=== PATIENT | male | born 1970 | race Caucasian/White ===

== ENCOUNTER 2019-06-02 08:00 | Emergency (ER) | payer OTHER, SELFPAY ==
[2019-06-02 08:03] VITALS: BP 158/101; PULSE 77; RESP 16; TEMP 36.6; O2SAT 99; BMI 30.5
--- NOTE | 2019-06-02 08:08 | W.ED.ABDPA2 ---
HPI - Abdominal Pain General: Chief Complaint: Abdominal Pain Stated Complaint: Abd pain Time Seen by Provider: 06/02/19 08:08 [facility] ED PFSH: Statuses (acute, chronic, etc) shown below reflect problem list status as previously entered and may not be historically accurate Social History Smoking and tobacco status: current every day smoker Course Vital Signs: Vital signs: Vital Signs Temperature 97.8 F 06/02/19 08:03 Pulse Rate 77 06/02/19 08:03 Respiratory Rate 16 06/02/19 08:03 Blood Pressure 158/101 06/02/19 08:03 Pulse Oximetry 99 06/02/19 08:03 Coding Level of Care Code ED Enforcement Safety Officer for Karthikeyan Cesar
--- NOTE | 2019-06-02 08:11 | XR_ITS ---
WS: [id number] ABDOMEN 1 VIEW(S) HISTORY: pain COMPARISON: None available. Slight increased amount of air in small bowel loops in the LEFT abdomen and RIGHT lower quadrant. The re is mild wall thickening and increase fluid suspected in the RIGHT colon or distal small bowel. Dec reased amount of air in the distal GI tract. No suspicious calcifications or masses. No bone abnormality. XR/XR KUB portable [id number] IMPRESSION: 1. Suspected colitis or early partial small bowel obstruction. Recommend follo w-up CT abdomen and pelvis. 2. No obstruction.
--- NOTE | 2019-06-02 08:12 | ED_ITS ---
HPI - General Adult General: Chief complaint: Abdominal Pain Stated complaint: Abd pain Time Seen by Provider: 06/02/19 08:08 History of Present Illness: HPI narrative: Patient complains abdominal pain x3 days. Denies any bowel or urine problems. Denies nausea or vomiting and denies any other health problems. Able to eat and drink complaint: Abdominal pain Onset (ago): day(s) (3) Location: abdomen Radiation: non-radiation Severity: moderate Severity scale (1-10): 5 Quality: aching Pain Consistency: constant Relieving factors: none Associated symptoms: Deny chest pain, dyspnea, headache(s), nausea, rash or vomiting Review of Systems Const: Denies: fever, chills or body aches Eyes: Denies: change in vision or blurry vision ENMT: Denies: throat pain or nasal congestion Card: Denies: chest pain or shortness of breath on exertion Resp: Denies: shortness of breath, productive cough or non-productive cough GI: Reports: abdominal pain and heartburn/indigestion; Denies: nausea, vomiting, feeling full early, change in bowel habits, painful bowel movements or change in stool character : Denies: difficulty urinating Musc: Denies: extremity pain Skin/Breast: Denies: rash Neuro: Denies: headache Psych: Denies: anxiety or depression [place]/Lymph: Denies: easy bruising PFSH ED PFSH: Statuses (acute, chronic, etc) shown below reflect problem list status as previously entered and may not be historically accurate Social History Smoking and tobacco status: current every day smoker Physical Exam Const: COMMON NORMALS: no apparent distress, average body habitus and oriented x3 HENMT: COMMON NORMALS: normocephalic HEAD & SCALP: normal to inspection and normocephalic FACE & SINUS: normal facial exam Eye: COMMON NORMALS: conjunctivae normal GENERAL EYE: normal appearance of both eyes CONJUNCTIVA: Yes conjunctivae normal Neck/C-Spine: COMMON NORMALS: no JVD Chest: COMMONS NORMALS: inspection of chest normal Resp: COMMON NORMALS: normal respiratory effort and clear to auscultation bilaterally AUSCULTATION: clear to auscultation bilaterally Cardio: COMMON NORMALS: no JVD, regular rate and regular rhythm RATE: regular rate RHYTHM: regular rhythm GI: COMMON NORMALS: normal to inspection, nondistended, normoactive bowel sounds INSPECTION: Yes normal to inspection AUSCULTATION: Yes normoactive bowel sounds PALPATION: Yes tender (Epigastric) Details: LLQ, RLQ, LUQ and RUQ Extremity: COMMON NORMALS: normal to inspection and full ROM Neuro: COMMON NORMALS: oriented x3 Course Vital Signs: Vital signs: Vital Signs Temperature 97.8 F 06/02/19 08:03 Pulse Rate 77 06/02/19 08:03 Respiratory Rate 16 06/02/19 08:03 Blood Pressure 158/101 06/02/19 08:03 Pulse Oximetry 98 06/02/19 08:19 MDM - General Adult MDM Narrative: Medical decision making narrative: Discussed his left adrenal gland adenoma that he has a there is no change since 2011 patient was relieved to hear that. Lab Data: Labs: Lab Results 06/02/19 06/02/19 Range/Units 08:15 08:15 WBC 8.1 (4.0-10.0) 10^3/ uL RBC 5.19 (4.1-5.3) 10^6/u L Hgb 15.6 (11.7-16.6) g/dL Hct 46.9 (42.0-52.0) % MCV 90.4 (80-94) fL MCH 30.1 (28.0-34.0) pg MCHC 33.3 (30.0-36.0) g/dL RDW 13.0 (12.1-15.1) % Plt Count 332 (130-400) 10^3/c mm MPV 9.7 (7.4-10.4) fL Neut % (Auto) 60.4 % Lymph % (Auto) 27.0 % [place] % (Auto) 8.2 % Eos % (Auto) 3.3 % Baso % (Auto) 0.7 % Neut # (Auto) 4.9 (1.8-7.7) 10^3/u L Lymph # (Auto) 2.2 (0.8-4.8) 10^3/u L [place] # (Auto) 0.7 (0.2-0.9) 10^3/u L Eos # (Auto) 0.3 (0.0-0.8) 10^3/u L Baso # (Auto) 0.1 (0.0-0.1) 10^3/u L Nucleated RBC % (a uto) 0 % Nucleated RBCs # 0.0 /100WBC Sodium 140 (136-145) mmol/L Potassium 4.2 (3.5-5.1) mmol/L Chloride 101 (98-107) mmol/L Carbon Dioxide 27 (22-29) mmol/L Anion Gap 16.2 (5-19) BUN 12 (6-20) mg/dL Creatinine 0.9 (0.7-1.2) mg/dL GFR Calculation 89.0 L (90-130) mL/min Glucose 113 (65-115) mg/dL Calcium 9.1 (8.5-10.5) mg/dL Total Bilirubin 0.3 (0.15-1.2) mg/dL AST 14 (0-40) U/L ALT 10 (0-41) U/L Alkaline Phosphata se 82 (40-130) IU/L Total Protein 6.9 (6.6-8.7) g/dL Albumin 4.1 (3.5-5.2) g/dL Globulin 2.8 (1.3-4.6) g/dL Lipase 24 (13-60) U/L Discharge Plan Discharge Patient Disposition: Home, Self-Care Clinical Impression: Gastroenteritis Condition: Stable Prescriptions: New Reglan 5 mg tablet 5 mg PO Q6H PRN (Reason: nausea and vomiting) Qty: 14 RF: 0 Discharge Orders: Discharge Order (Routine); Ordered 06/02/19 Ordered By: Peter Kumar Referrals: Justin Pierre, [Family Provider] - Discharge Diet: Advance as tolerated Discharge Activity: Increase activity as tolerated Patient Instructions: Gastroenteritis (ED) Activity Restrictions/Additional Instructions: Follow-up with medical provider as directed. Take medications as prescribed. Return to the ER or your medical provider if condition worsens. Please read and understand discharge instructions. If any questions ask please. Advance diet slowly fluids for next 2 days and advance to solid foods after that. Coding Level of Care Code ED Reference And Instruction Librarian for Karthikeyan Fwchance Exam Problem Focused
[2019-06-02 08:19] VITALS: O2SAT 98
[2019-06-02] MEDS: sodium chloride 0.9% 1,000 ML 999 ML IV (08:27)
[2019-06-02 08:32] LABS: Basophils # 0.1 10^3/uL (0.0-0.1); Basophils % 0.7 %; Eosinophils # 0.3 10^3/uL (0.0-0.8); Eosinophils % 3.3 %; Hematocrit 46.9 % (42.0-52.0); Hemoglobin 15.6 g/dL (11.7-16.6); Lymphocytes # 2.2 10^3/uL (0.8-4.8); Mean Corpuscular HGB Conc 33.3 g/dL (30.0-36.0); Mean Corpuscular Hemoglobin 30.1 pg (28.0-34.0); Mean Corpuscular Volume 90.4 fL (80-94); Mean Platelet Volume 9.7 fL (7.4-10.4); Monocytes # 0.7 10^3/uL (0.2-0.9); Monocytes % 8.2 %; Neutrophils # 4.9 10^3/uL (1.8-7.7); Neutrophils % 60.4 %; Nucleated Red Blood Cells % 0 %; Platelet Count 332 10^3/cmm (130-400); Red Blood Count 5.19 10^6/uL (4.1-5.3); White Blood Count 8.1 10^3/uL (4.0-10.0)
--- NOTE | 2019-06-02 08:41 | CT_ITS ---
WS: [id number] CT ABDOMEN AND PELVIS WITH CONTRAST HISTORY: ABDOMINAL PAIN TECHNIQUE: Imaging performed of the abdomen and pelvis with IV contrast. Single phase imaging of the abdomen. Coronal and sagittal reformats are submitted. All CT scans at [facility] use at least one of these dose optimization techniques: automated exposure control; mA and/or kV adjustment per patient size (includes targeted exams where dose is matched to clinical indication); or iterativ e reconstruction. IV CONTRAST: Omnipaque 300; 95 mL IV. Oral contrast: No DLP: 1242.33 mGy.cm COMPARISON: 12/29/2015 Lower thorax: Mild dependent changes at the lung bases. Heart size is normal. Small hiatal hernia. Liver/biliary system: Normal size liver with a few scattered areas of decreased density the largest m easures 6 mm in the LEFT lobe. No change since 12/29/2015. Gallbladder: Very slightly contracted gallbladder. No adjacent inflammation. Pancreas: Normal. Spleen: Normal. Adrenal glands: Normal RIGHT adrenal gland. Marked lobulation of the LEFT adrenal gland with the late ral limb measuring 3.0 x 1.5 cm. Similar to studies dating back to 08/30/2011. Consistent with a benign adenoma. Right kidney: Normal. Left kidney: Normal. Aorta: Mild atherosclerosis with no aneurysm. Lymphadenopathy: None. Free fluid: None. GI tract: Mild hyperemia and mild wall thickening of the small bowel loops predominantly within the L EFT abdomen. There is mild fluid distention with no obstruction. The appendix is normal. Moderate con stipation throughout the remaining colon. There are a few scattered diverticula in the sigmoid with n o acute inflammation. Abdominal wall: Unremarkable abdominal wall. No hernia. Pelvis: Well-distended urinary bladder. No free fluid or adenopathy. Bones: No osteoblastic or osteolytic bone disease. CT/CT abdomen pelvis w con* [id number] IMPRESSION: 1. Mild hyperemia, increased fluid and wall thickening of the small bowel loop s, predominantly within the LEFT abdomen. Findings are most consistent with a m ild gastroenteritis/enteritis. 2. No obstruction. 3. Constipation. 4. Long-term stability LEFT adrenal mass, consistent with that adenoma.
[2019-06-02 08:47] LABS: Alanine Aminotransferase 10 U/L (0-41); Albumin Level 4.1 g/dL (3.5-5.2); Alkaline Phosphatase 82 IU/L (40-130); Anion Gap 16.2 (5-19); Aspartate Amino Transferase 14 U/L (0-40); Blood Urea Nitrogen 12 mg/dL (6-20); Calcium 9.1 mg/dL (8.5-10.5); Carbon Dioxide 27 mmol/L (22-29); Chloride 101 mmol/L (98-107); Globulin 2.8 g/dL (1.3-4.6); Glucose 113 mg/dL (65-115); Lipase 24 U/L (13-60); Potassium 4.2 mmol/L (3.5-5.1); Sodium 140 mmol/L (136-145); Total Bilirubin 0.3 mg/dL (0.15-1.2); Total Protein 6.9 g/dL (6.6-8.7)
[2019-06-02] MEDS: iohexol 300 mg/mL 100 mL Btl IV (09:01)
[2019-06-02] MEDS: lidocaine 2% viscous 15 mL UDC 10 ML PO (09:14)
[2019-06-02] MEDS: alum-mag-hydroxide-sime 30 mL UDC 10 ML PO (09:14)
[2019-06-02] MEDS: sucralfate 1 gm/10 mL Oral Liq UDC PO (09:14)
[2019-06-02] MEDS: ketorolac 30 mg/mL INJ IVP (09:37)
[2019-06-02 10:00] VITALS: BP 156/93; PULSE 90; RESP 18; O2SAT 97
[2019-06-02 10:04] LABS: Add Urine Microscopic? NO
[2019-06-02 10:06] LABS: Bilirubin Urine Neg (NEGATIVE); Blood Urine Neg (Negative); Glucose Urine UA Norm (Normal); Ketones Urine Negative (Negative); Leukocyte Esterase Urine Negative (Negative); Nitrate Urine Negative (Negative); Protein Urine Neg (Negative); Urine Appearance Clear (CLEAR); Urine Color Yellow (Yellow); Urobilinogen Urine Norm (Negative)
== END 2019-06-02 10:01 | disposition home or self-care (01) ==
PROVIDERS: Emergency Provider Nurse Practitioner Family; Family Provider Electrodiagnostic Medicine
DX: K52.9 Noninfective gastroenteritis and colitis, unspecified (principal); F17.210 Nicotine dependence, cigarettes, uncomplicated
CPT/HCPCS: 36415; 74018; 74177; 80053; 81003; 83690; 85025; 96360; 96361; 96374; 96375; 99283; A9270; J1885; J7030; Q9967

== ENCOUNTER 2019-06-21 10:58 | Emergency (ER) | payer OTHER, SELFPAY ==
[2019-06-21 11:08] VITALS: BP 150/108; PULSE 70; RESP 16; TEMP 36.6; O2SAT 98; BMI 30.5
--- NOTE | 2019-06-21 12:20 | ED_ITS ---
HPI - Back Pain/Injury General: Chief Complaint: General Medical Stated Complaint: back pain Time Seen by Provider: 06/21/19 12:19 Source: patient Mode of arrival: ambulatory Limitations: no limitations History of Present Illness: HPI Narrative: Patient is a very nice 49-year-old male who presents to ED today with complaints of lower back pain. Patient states almost a week ago he was lifting something heavy when he immediately felt something pull in his back. Patient states he has had these pains previously when he has had herniated disks. Patient states he continued to work all week because he needed the money but knows it added to the aggravation of his back. Patient reports pain will radiate down into his legs. He is not having any issues with bowel or bladder dysfunction. He denies saddle anesthesia. Patient was able to ambulate throughout the ED. MD elicited complaint: back pain Pertinent past history: prior back pain Onset (ago): day(s) Timing: constant Severity: moderate Similar Symptoms Previously: Yes Exacerbating factors: movement, sitting upright, coughing/sneezing and lifting Context: while lifting Associated symptoms: Deny chills, dysuria, fever(s) or urinary urgency Review of Systems Const: Denies: fever or chills : Denies: flank pain, difficulty urinating, painful urination, urinary frequency, urinary urgency or urinary hesitancy Musc: Reports: back pain; Denies: neck pain, extremity pain, extremity swelling, joint pain or joint swelling Skin/Breast: Denies: rash Neuro: Denies: numbness in extremities, weakness in extremities, changes in sensation or lack of coordination PFSH ED PFSH: Social History Smoking and tobacco status: current every day smoker Physical Exam Const: COMMON NORMALS: no apparent distress, average body habitus, oriented x3, no limitations, healthy appearing, alert and well nourished Resp: COMMON NORMALS: normal respiratory effort and clear to auscultation bilaterally AUSCULTATION: clear to auscultation bilaterally Cardio: COMMON NORMALS: regular rate and regular rhythm RATE: regular rate RHYTHM: regular rhythm : COMMON NORMALS: Yes no CVA tenderness BLADDER/KIDNEY EXAM: Yes no CVA tenderness Back/Pelvis: COMMON NORMALS: no CVA tenderness THORACIC SPINE/UPPER BACK: Yes normal to inspection, Yes thoracic ROM normal and No thoracic spinal tenderness LUMBAR SPINE/LOWER BACK: Yes lumbar spinal tenderness Lumbar spinal tenderness location: L4 and L5 SACROILIAC JOINTS: Yes SI joints normal Neuro: COMMON NORMALS: oriented x3, no focal motor deficits and no sensory deficits noted SENSORIUM/ORIENTATION: Yes alert MOTOR EXAM: strength 5/5 throughout Skin: COMMON NORMALS: no rashes or lesions noted GENERAL SKIN EXAM: no rashes or lesions noted Course Vital Signs: Vital signs: Vital Signs Temperature 97.8 F 06/21/19 11:08 Pulse Rate 70 06/21/19 11:08 Respiratory Rate 16 06/21/19 11:08 Blood Pressure 150/108 06/21/19 11:08 Pulse Oximetry 98 06/21/19 11:08 Discharge Plan Discharge Patient Disposition: Home, Self-Care Clinical Impression: Low back strain Qualifiers: Encounter type: initial encounter Qualified Code(s): S39.012A - Strain of muscle, fascia and tendon of lower back, initial encounter Condition: Stable Prescriptions: New cyclobenzaprine 10 mg tablet 10 mg PO TID Qty: 14 RF: 0 prednisone 10 mg tablet 60 mg PO DAILY 5 Days Qty: 30 RF: 0 hydrocodone-acetaminophen 5-325 mg tablet 1 tab PO Q6H PRN (Reason: pain) Qty: 14 RF: 0 diclofenac sodium 50 mg tablet,delayed release (DR/EC) 50 mg PO Q12H PRN (Reason: pain) Qty: 20 RF: 0 Discharge Orders: Discharge Order (Routine); Ordered 06/21/19 Ordered By: Mi Sánchez Referrals: Justin Pierre DO [Family Provider] - Discharge Diet: Usual diet Discharge Activity: Increase activity as tolerated Patient Instructions: Lumbar Disc Herniation (ED), Low Back Strain (ED) Stand Alone Forms: Work/School Release Discharge Date/Time: 06/21/19 13:11 Coding Level of Care Code ED Missile [employer] Miss[employer] Checkout Technician for Chg Fwd Exam Detailed
[2019-06-21] MEDS: dexamethasone 10 mg/mL INJ 8 MG IM (12:48)
[2019-06-21] MEDS: ketorolac 60 mg/2 mL INJ IM (12:48)
== END 2019-06-21 13:11 | disposition home or self-care (01) ==
PROVIDERS: Emergency Provider Physician Assistant; Family Provider Electrodiagnostic Medicine
DX: S39.012A Strain of muscle, fascia and tendon of lower back, initial encounter (principal); F17.200 Nicotine dependence, unspecified, uncomplicated; X50.0XXA Overexertion from strenuous movement or load, initial encounter
CPT/HCPCS: 96372; 99281; 99283; J1100; J1885

== ENCOUNTER 2019-08-01 19:28 | Emergency (ER) | payer OTHER, SELFPAY ==
[2019-08-01 19:35] VITALS: BP 166/102; PULSE 95; RESP 20; TEMP 37.9; O2SAT 98; BMI 30.5
--- NOTE | 2019-08-01 20:18 | W.ED.SOB ---
HPI - SOB/Dyspnea General: Chief Complaint: Shortness of Breath/Dyspnea Stated Complaint: fever/sob Time Seen by Provider: 08/01/19 19:45 Source: patient Mode of arrival: ambulatory Limitations: no limitations History of Present Illness: HPI Narrative: 49-year-old gentleman who presents to the emergency department with complaints of cough, difficulty breathing, fever that all started this morning. The patient was in [place] when the symptoms started and he has been there for the last 10 days. When he got home his temperature was 102.3. Cough is dry. Has chest pain only when coughing. He smokes about 2 packs of cigarettes a day. MD elicited complaint: shortness of breath and cough Onset (ago): hour(s) (8) Timing: constant and progressively worsening Severity: moderate Exacerbating factors: nothing Relieving factors: nothing Associated symptoms: Reports chest congestion, chest pain, cough, fever(s) and myalgias; Deny abdominal pain, nausea, palpitations, polydipsia, polyuria or vomiting Treatment prior to arrival: none Review of Systems General: Reports: 10 or more systems reviewed and unremarkable except in HPI and below Const: Reports: fever Eyes: Denies: change in vision or blurry vision ENMT: Denies: throat pain, enlarged tonsils, painful swallowing, hoarseness, mouth pain or swelling of lips/tongue Card: Reports: chest pain; Denies: palpitations, irregular heart rhythm, edema or swelling of feet/ankles Resp: Reports: chest congestion GI: Denies: abdominal pain, nausea or vomiting : Denies: flank pain, painful urination, urinary frequency, urinary urgency or urinary hesitancy Musc: Denies: neck pain, back pain or extremity swelling Skin/Breast: Denies: rash, itching or redness Neuro: Denies: headache, numbness in extremities or weakness in extremities Endo: Denies: excessive urination, excessive thirst or tired all the time PFSH ED PFSH: Medical History Back pain Degenerative joint disease Smoking greater than 20 pack years Surgical History (Updated 08/01/19 @ 23:14 by Brian Abel MD) Hx of tonsillectomy Social History Smoking and tobacco status: current every day smoker Physical Exam Const: COMMON NORMALS: no apparent distress, average body habitus, oriented x3, no limitations, alert and well nourished GENERAL APPEARANCE: ill appearing HENMT: COMMON NORMALS: normocephalic, head/scalp atraumatic and moist oral mucous membranes HEAD & SCALP: normocephalic and atraumatic Eye: COMMON NORMALS: PERRL, EOMs intact bilaterally, conjunctivae normal and no scleral icterus CONJUNCTIVA: Yes conjunctivae normal PUPIL: Yes PERRL Neck/C-Spine: COMMON NORMALS: full ROM, supple, no meningeal signs, no JVD and no carotid bruits Chest: COMMONS NORMALS: inspection of chest normal and palpation of chest normal Resp: COMMON NORMALS: normal respiratory effort, no retractions, no use of accessory muscles, clear to auscultation bilaterally and percussion normal AUSCULTATION: clear to auscultation bilaterally PERCUSSION: percussion normal Cardio: COMMON NORMALS: no JVD, regular rate, regular rhythm, S1 normal heart sound, S2 normal heart sound, no gallops, no clicks, no murmurs, no rub and peripheral pulses 2+ throughout RATE: regular rate RHYTHM: regular rhythm HEART SOUNDS: S1 normal and S2 normal PERIPHERAL PULSES: pulses 2+ throughout GI: COMMON NORMALS: normal to inspection, nondistended, normoactive bowel sounds, soft to palpation, non-tender, no hepatosplenomegaly, no masses and no bruits PALPATION: Yes soft and Yes no hepatosplenomegaly : COMMON NORMALS: Yes no CVA tenderness BLADDER/KIDNEY EXAM: Yes no CVA tenderness Back/Pelvis: COMMON NORMALS: no CVA tenderness Extremity: COMMON NORMALS: normal to inspection, full ROM, normal capillary refill, no calf tenderness and no pedal edema Neuro: COMMON NORMALS: oriented x3 SENSORIUM/ORIENTATION: Yes alert MENINGEAL SIGNS: Yes no meningeal signs Skin: COMMON NORMALS: no rashes or lesions noted, no wounds, skin turgor normal, no jaundice, no petechiae and no mottling GENERAL SKIN EXAM: no rashes or lesions noted and turgor normal Course Reevaluation(s): Reevaluation #1: Discussed his lab and imaging findings with him. Discussed that nothing acute showed up on his labs or his chest x-ray. I advised that because of his history of being in [place] for the last 10 days and his fever as well as his respiratory symptoms I have a high index of suspicion for covid-19 in him. He has been tested and we are awaiting his results. However because of how sick he appears I would like to admit him for further evaluation and management. I explained the reasons why, however the patient does not want to be admitted. He insists he is discharged home. He understands the risks involved including worsening of his symptoms and possibly . I advised him to self quarantine for at least 14 days and he voiced understanding. I also strongly advised that if he worsens then he needs to present for reevaluation and possible admission. He also voiced understanding. I will therefore discharge him home. Time: 22:58 Consultations: Consultation #1: Dr. Abel, hospitalist. He kindly accepted patient to his service. The patient will be admitted to the [facility] which is where all the patient under investigation are being kept at this time. Time: 22:55 Vital Signs: Vital signs: Vital Signs Temperature 102.8 F H 08/01/19 20:57 Pulse Rate 95 08/01/19 19:35 Respiratory Rate 20 H 08/01/19 19:35 Blood Pressure 166/102 08/01/19 19:35 Pulse Oximetry 97 08/01/19 20:57 MDM - SOB/Dyspnea Lab Data: Labs: Lab Results 08/01/19 08/01/19 08/01/19 Range/Units 21:30 21:30 21:30 WBC 5.3 (4.0-10.0) 10^3/ uL RBC 5.07 (4.1-5.3) 10^6/u L Hgb 15.5 (11.7-16.6) g/dL Hct 46.6 (42.0-52.0) % MCV 91.9 (80-94) fL MCH 30.6 (28.0-34.0) pg MCHC 33.3 (30.0-36.0) g/dL RDW 13.3 (12.1-15.1) % Plt Count 239 (130-400) 10^3/c mm MPV 9.7 (7.4-10.4) fL Neut % (Auto) 76.4 % Lymph % (Auto) 14.8 % [place] % (Auto) 7.7 % Eos % (Auto) 0.2 % Baso % (Auto) 0.7 % Neut # (Auto) 4.1 (1.8-7.7) 10^3/u L Lymph # (Auto) 0.8 (0.8-4.8) 10^3/u L [place] # (Auto) 0.4 (0.2-0.9) 10^3/u L Eos # (Auto) 0.0 (0.0-0.8) 10^3/u L Baso # (Auto) 0.0 (0.0-0.1) 10^3/u L Nucleated RBC % (a uto) 0 % Nucleated RBCs # 0.0 /100WBC D-Dimer (0-0.59) ug/mIFE U Sodium 138 (136-145) mmol/L Potassium 3.6 (3.5-5.1) mmol/L Chloride 99 (98-107) mmol/L Carbon Dioxide 27 (22-29) mmol/L Anion Gap 15.6 (5-19) BUN 11 (6-20) mg/dL Creatinine 1.1 (0.7-1.2) mg/dL GFR Calculation 70.6 L (90-130) mL/min Glucose 101 (65-115) mg/dL Calculated Osmolal ity 282 L (285-295) mOsm/k g Lactate 1.2 (0.5-2.2) mmol/L Calcium 8.9 (8.5-10.5) mg/dL Ferritin (30-400) ng/mL Total Bilirubin 0.2 (0.15-1.2) mg/dL AST 23 (0-40) U/L ALT 22 (0-41) U/L Alkaline Phosphata se 94 (40-130) IU/L Lactate Dehydrogen ase (135-225) U/L C-Reactive Protein (0.0-4.9) mg/L Total Protein 7.7 (6.6-8.7) g/dL Albumin 4.5 (3.5-5.2) g/dL Globulin 3.2 (1.3-4.6) g/dL 08/01/19 08/01/19 08/01/19 Range/Units 21:30 21:30 21:30 WBC (4.0-10.0) 10^3/ uL RBC (4.1-5.3) 10^6/u L Hgb (11.7-16.6) g/dL Hct (42.0-52.0) % MCV (80-94) fL MCH (28.0-34.0) pg MCHC (30.0-36.0) g/dL RDW (12.1-15.1) % Plt Count (130-400) 10^3/c mm MPV (7.4-10.4) fL Neut % (Auto) % Lymph % (Auto) % [place] % (Auto) % Eos % (Auto) % Baso % (Auto) % Neut # (Auto) (1.8-7.7) 10^3/u L Lymph # (Auto) (0.8-4.8) 10^3/u L [place] # (Auto) (0.2-0.9) 10^3/u L Eos # (Auto) (0.0-0.8) 10^3/u L Baso # (Auto) (0.0-0.1) 10^3/u L Nucleated RBC % (a uto) % Nucleated RBCs # /100WBC D-Dimer 1.24 H (0-0.59) ug/mIFE U Sodium (136-145) mmol/L Potassium (3.5-5.1) mmol/L Chloride (98-107) mmol/L Carbon Dioxide (22-29) mmol/L Anion Gap (5-19) BUN (6-20) mg/dL Creatinine (0.7-1.2) mg/dL GFR Calculation (90-130) mL/min Glucose (65-115) mg/dL Calculated Osmolal ity (285-295) mOsm/k g Lactate (0.5-2.2) mmol/L Calcium (8.5-10.5) mg/dL Ferritin 156 (30-400) ng/mL Total Bilirubin (0.15-1.2) mg/dL AST (0-40) U/L ALT (0-41) U/L Alkaline Phosphata se (40-130) IU/L Lactate Dehydrogen ase 230 H (135-225) U/L C-Reactive Protein 15.3 H (0.0-4.9) mg/L Total Protein (6.6-8.7) g/dL Albumin (3.5-5.2) g/dL Globulin (1.3-4.6) g/dL EKG Data^: EKG 1: Attestation: I personally reviewed and interpreted this EKG as follows: EKG Interpretation Date: 08/01/19 EKG interpretation time: 19:52 Prior EKG tracings: not available for review Interpretation: Normal sinus rhythm. Heart rate [address] changes. Normal axis. Normal EKG. Discharge Plan Discharge Patient Disposition: Home, Self-Care Clinical Impression: Suspected COVID-19 virus infection Condition: Stable Prescriptions: Continued cyclobenzaprine 10 mg tablet 10 mg PO TID Qty: 14 RF: 0 hydrocodone-acetaminophen 5-325 mg tablet 1 tab PO Q6H PRN (Reason: pain) Qty: 14 RF: 0 Discontinued diclofenac sodium 50 mg tablet,delayed release (DR/EC) 50 mg PO Q12H PRN (Reason: pain) Qty: 20 RF: 0 Discharge Orders: Discharge Order (Routine); Ordered 08/01/19 Ordered By: Aneesh Llamas Referrals: Justin Pierre, [Family Provider] - 1-3 days Activity Restrictions/Additional Instructions: Return for any new or worsening symptoms. I suspect that you may have contracted the COVID-19 infection. You should therefore go straight home and self quarantine for 14 days. When we obtain the results of your COVID-19 test you will be called and informed about the test. If your breathing gets worse or you feel worse or you have any concerns please come back and you will be admitted as we wanted to do tonight. Coding Level of Care Code ED Keying Machine Operator for Frederickg Fwd Exam Comprehensive
--- NOTE | 2019-08-01 20:36 | XRR_ITS ---
PROCEDURE INFORMATION: Exam: XR Chest, 2 Views Exam date and time: 08/01/2019 8:57 PM Age: 49 years old Clinical indication: Cough and fever and shortness of breath; Additional info: Fever, SOB, cough x 1 day TECHNIQUE: Imaging protocol: XR of the chest Views: 2 views. COMPARISON: No relevant prior studies available. FINDINGS: Lungs: Unremarkable. No consolidation. Pleural space: Unremarkable. No pleural effusion. No pneumothorax. Heart/Mediastinum: Unremarkable. No cardiomegaly. Bones/joints: No acute findings. XR/XR chest 2V* [id number] IMPRESSION: No acute findings.
[2019-08-01 20:57] VITALS: TEMP 39.3; O2SAT 97
[2019-08-01 21:42] LABS: Basophils % 0.7 %; Eosinophils % 0.2 %; Hematocrit 46.6 % (42.0-52.0); Hemoglobin 15.5 g/dL (11.7-16.6); Lymphocytes # 0.8 10^3/uL (0.8-4.8); Lymphocytes % 14.8 %; Mean Corpuscular HGB Conc 33.3 g/dL (30.0-36.0); Mean Corpuscular Hemoglobin 30.6 pg (28.0-34.0); Mean Corpuscular Volume 91.9 fL (80-94); Mean Platelet Volume 9.7 fL (7.4-10.4); Monocytes # 0.4 10^3/uL (0.2-0.9); Monocytes % 7.7 %; Neutrophils # 4.1 10^3/uL (1.8-7.7); Neutrophils % 76.4 %; Nucleated Red Blood Cells % 0 %; Platelet Count 239 10^3/cmm (130-400); Red Blood Count 5.07 10^6/uL (4.1-5.3); Red Cell Distribution Width 13.3 % (12.1-15.1); White Blood Count 5.3 10^3/uL (4.0-10.0)
[2019-08-01] MEDS: acetaminophen 500 mg Tablet 1000 MG PO (21:59)
[2019-08-01] MEDS: sodium chloride 0.9% 1,000 ML 999 ML IV (21:59)
[2019-08-01 22:00] LABS: Lactate (Lactic Acid level) 1.2 mmol/L (0.5-2.2)
[2019-08-01 22:01] LABS: Alanine Aminotransferase 22 U/L (0-41); Albumin Level 4.5 g/dL (3.5-5.2); Alkaline Phosphatase 94 IU/L (40-130); Anion Gap 15.6 (5-19); Aspartate Amino Transferase 23 U/L (0-40); Blood Urea Nitrogen 11 mg/dL (6-20); Calcium 8.9 mg/dL (8.5-10.5); Carbon Dioxide 27 mmol/L (22-29); Chloride 99 mmol/L (98-107); Globulin 3.2 g/dL (1.3-4.6); Glomerular Filtration Rate 70.6 mL/min (90-130); Glucose 101 mg/dL (65-115); Osmolality Calculated 282 mOsm/kg (285-295); Potassium 3.6 mmol/L (3.5-5.1); Sodium 138 mmol/L (136-145); Total Bilirubin 0.2 mg/dL (0.15-1.2); Total Protein 7.7 g/dL (6.6-8.7)
--- NOTE | 2019-08-01 22:09 | PC.NURSE ---
during pt rounding, pt temp elevated to 102.8. dr notified. vo for 1gm tylenol obtained
[2019-08-01 22:36] LABS: C Reactive Protein 15.3 mg/L (0.0-4.9)
--- NOTE | 2019-08-01 22:49 | PM.HP ---
Providers/Chief Complaint Chief Complaint: fever/sob History of Present Illness Smooth Russell is a 49 year old male who left AGAINST MEDICAL ADVICE before I examined him in the ER. Medications/Allergies Allergies Allergy/AdvReac Type Severity Reaction Status Date / Time Penicillins Allergy Unknown Verified 06/21/19 11:13 PFSH Acute PFSH: Medical History Back pain Degenerative joint disease Smoking greater than 20 pack years Surgical History (Updated 08/01/19 @ 23:14 by Brian Abel MD) Hx of tonsillectomy Social History Smoking and tobacco status: current every day smoker Vitals/I&O/Wt Last Vital Signs Temp 102.8 F H 08/01/19 20:57 Pulse 95 08/01/19 19:35 Resp 20 H 08/01/19 19:35 BP 166/102 08/01/19 19:35 Pulse Ox 97 08/01/19 20:57 Weight last 48 hrs Weight 102.058 kg Data : 08/01/19 21:30 08/01/19 21:30 Micro: Microbiology 08/01/19 21:33 Blood Culture - Preliminary Blood SPECIMEN COLLECTED 08/01/19 21:30 Blood Culture - Preliminary Blood SPECIMEN COLLECTED Attestations Medical Necessity Statement*: Left AMA, he was advised to stay quarantined by the ER physician, I have not seen the patient/not interacted Coding Level of Care Code Acute Friction Paint Machine Tender for Karthikeyan Cesar
[2019-08-01 23:17] LABS: D Dimer 1.24 ug/mIFEU (0-0.59)
[2019-08-01 23:19] LABS: Ferritin 156 ng/mL (30-400); Lactate Dehydrogenase 230 U/L (135-225)
[2019-08-01 23:22] LABS: Add Urine Microscopic? YES; Bacteria Urine 1+; Bilirubin Urine Neg (NEGATIVE); Blood Urine 3+ (Negative); Glucose Urine UA Norm (Normal); Ketones Urine Negative (Negative); Leukocyte Esterase Urine Negative (Negative); Mucus Urine 1+; Nitrate Urine Negative (Negative); Protein Urine Neg (Negative); Squamous Epithelial Cell Urine 0-4 (0-5); Urine Appearance Clear (CLEAR); Urine Color Yellow (Yellow); Urobilinogen Urine Norm (Negative); WBC Urine 0-4 /hpf (0-5); pH Urine 5 (5-7)
[2019-08-01 23:22] LABS: Influenza A by IFA Negative (Negative); Influenza B by IFA Negative (Negative)
[2019-08-01 23:23] LABS: Add Urine Culture? No; Calcium Oxalate Crystals Urine 0-4 /hpf
[2019-08-01 23:36] VITALS: BP 138/75; PULSE 82; RESP 20; TEMP 37.7; O2SAT 95
--- NOTE | 2019-08-01 23:49 | PC.NURSE ---
RN reviewed and agrees with assessment.
[2019-08-04 08:57] LABS: Coronavirus Overall Results NOT DETECTED
== END 2019-08-01 23:36 | disposition home or self-care (01) ==
PROVIDERS: Internal Medicine; Emergency Provider Family Medicine; Family Provider Electrodiagnostic Medicine
DX: Z20.828 Contact with and (suspected) exposure to other viral communicable diseases (principal); F17.200 Nicotine dependence, unspecified, uncomplicated
CPT/HCPCS: 12345; 71046; 80053; 81001; 82728; 83605; 83615; 85025; 85378; 86140; 87040; 87635; 87804; 96360; 99284; A9270; J7030

== ENCOUNTER 2019-09-07 08:01 | Emergency (ER) | payer OTHER, SELFPAY ==
--- NOTE | 2019-09-07 08:03 | XRR_ITS ---
PROCEDURE INFORMATION: Exam: XR Left Ankle Exam date and time: 09/07/2019 8:07 AM Age: 49 years old Clinical indication: Injury or trauma; Injury history: Twisted ankle; Initial encounter; Blunt trauma; Left TECHNIQUE: Imaging protocol: XR Left ankle. Views: 3 or more views. COMPARISON: No relevant prior studies available. FINDINGS: Bones/joints: The ankle mortise is intact. Irregularity of the medial malleolus with a well corticated likely chronic avulsion fragment medially. No acute fracture. Soft tissues: Soft tissue edema laterally. Achilles tendon insertion site calcifications. XR/XR ankle LT min 3V* [id number] IMPRESSION: 1. No acute osseous abnormality. 2. Soft tissue edema laterally.
[2019-09-07 08:06] VITALS: BMI 29.8
[2019-09-07 08:09] VITALS: BP 145/108; PULSE 92; RESP 18; TEMP 36.9; O2SAT 98
--- NOTE | 2019-09-07 08:12 | ED_ITS ---
HPI - Extremity Problem General: Chief complaint: Extremity Injury, Lower Stated complaint: left ankle pain Time Seen by Provider: 09/07/19 08:02 Review of Systems General: Reports: 10 or more systems reviewed and unremarkable except in HPI and below Musc: Reports: joint pain and joint swelling PFSH ED PFSH: Medical History Back pain Degenerative joint disease Smoking greater than 20 pack years Surgical History Hx of tonsillectomy Social History Smoking and tobacco status: current every day smoker Physical Exam Extremity: LEFT LOWER EXTREMITY: Yes ankle joint Left ankle: Yes inspection (Swelling), Yes palpation (Tender) and Yes ROM (Decreased due to pain and swelling) Course Vital Signs: Vital signs: Vital Signs Temperature 98.5 F 09/07/19 08:09 Pulse Rate 92 09/07/19 08:09 Respiratory Rate 18 09/07/19 08:09 Blood Pressure 145/108 09/07/19 08:09 Pulse Oximetry 98 09/07/19 08:09 MDM - Extremity (Nontraumatic) Imaging Data^: Other Xray: My impression: Older avulsion fracture of the distal medial malleolus New avulsion fracture of the distal medial malleolus Discharge Plan Discharge Patient Disposition: Home, Self-Care Clinical Impression: Ankle sprain and strain Ankle fracture Qualifiers: Encounter type: initial encounter Fracture type: closed Laterality: left Qualified Code(s): S82.892A - Other fracture of left lower leg, initial encounter for closed fracture Condition: Stable Prescriptions: New hydrocodone-acetaminophen 5-325 mg tablet 1 tab PO Q4H PRN (Reason: pain) Qty: 20 RF: 0 No Action No Known Home Medications RF: 0 Discharge Orders: Discharge Order (Routine); Ordered 09/07/19 Ordered By: Raheem Simpson Coding Level of Care Code ED Experimental Mechanic Electrical for Frederickg Fwd Exam Problem Focused
[2019-09-07 09:05] VITALS: BP 144/87; PULSE 86; RESP 18; O2SAT 96
--- NOTE | 2019-09-10 12:38 | DCPLANNER ---
logistics and planning manager had message to schedule a follow up appointment for patient with ortho. logistics and planning manager called the ortho clinic, spoke with Pat, gave clinic patients information. logistics and planning manager was told that patients information would be printed and reviewed. Clinic will call adult protective caseworker and patient with appointment information.
--- NOTE | 2019-09-10 15:41 | DCPLANNER ---
Patient has a follow up appointment scheduled for , September 11, 2019 at 9:[address] Zimmer. Clinic will call patient with appointment information.
--- NOTE | 2019-10-09 10:37 | DCPLANNER ---
Addendum entered by Yuko Irwin 10/09/19 11:04: Patient called case management associate back, case management associate informed patient that he would need to follow up with primary care. Patient stated that he did not have a primary care physician. communications station manager got patient established with SHADOWGRAPH OPERATOR, Torri Lima, an appointment is scheduled for today, September at 1:30 with Torri. communications station manager called patient with appointment information, patient stated that he would attend the appointment. Original Note: communications station manager had a message from patient stating that he needed a referral to ortho, that a referral had not been made for -patient. communications station manager did make referral to ortho for patient, and an appointment was scheduled for August, at 9:[address] Zimmer. Patient did not attend that appointment. communications station manager called the ortho clinic, spoke with Pat, patients information was printed and reviewed again by Dr. Zimmer. Pat called case management associate back, stating that Dr. Zimmer reviewed patients information, stating that patient can follow up with primary care physician and if he needs to referred back to ortho, -then primary care physician can refer patient. communications station manager called [phone] and was unable to speak with patient at this time, a voicemail was left for patient to return spring encaser phone call.
--- NOTE | 2019-10-09 14:08 | DCPLANNER ---
Patient did not attend appointment scheduled for 09.11.19 with ortho.
--- NOTE | 2019-10-21 15:24 | DCPLANNER ---
Patient did attend appointment scheduled for 10.09.19 with Torri Lima.
== END 2019-09-07 08:59 | disposition home or self-care (01) ==
PROVIDERS: Emergency Provider Family Medicine
DX: S82.52XA Displaced fracture of medial malleolus of left tibia, initial encounter for closed fracture (principal); S93.402A Sprain of unspecified ligament of left ankle, initial encounter; S96.912A Strain of unspecified muscle and tendon at ankle and foot level, left foot, initial encounter; X58.XXXA Exposure to other specified factors, initial encounter; F17.210 Nicotine dependence, cigarettes, uncomplicated
CPT/HCPCS: 12345; 29515; 73610; 99281; 99283; E0114

== ENCOUNTER 2019-10-09 14:23 | Outpatient (CLI) | payer OTHER, SELFPAY ==
--- NOTE | 2019-10-09 14:32 | XR_ITS ---
WS: [id number] XR ankle LT min 3V* [id number] REASON FOR EXAM: Ankle Pain/Fx. Mall osseous tibialis is seen The ankle mortise was normal. The tibia, fibula, talus, and posterior shelf the tibia are all normal. A calcaneal spur is noted. Comparisons were made to September 07, 2019. XR/XR ankle LT min 3V* [id number] IMPRESSION: Os tibialis. Calcaneal spur.
== END 2019-10-09 14:24 | disposition home or self-care (01) ==
LOC: RAD 14:27
PROVIDERS: Visit Provider Nurse Practitioner Family
DX: S82.892A Other fracture of left lower leg, initial encounter for closed fracture (principal); M25.572 Pain in left ankle and joints of left foot; X58.XXXA Exposure to other specified factors, initial encounter; M77.32 Calcaneal spur, left foot
CPT/HCPCS: 73610

== ENCOUNTER 2021-06-20 15:31 | Emergency (ER) | payer OTHER, SELFPAY ==
[2021-06-20 15:35] VITALS: BP 177/110; PULSE 78; RESP 16; TEMP 36.4; O2SAT 98; BMI 27.1
[2021-06-20 15:56] VITALS: BP 177/110; PULSE 78; RESP 16; O2SAT 98
--- NOTE | 2021-06-20 16:17 | W.ED.BACK ---
HPI - Back Pain/Injury General: Chief Complaint: Back Pain/Injury Stated Complaint: PT thinks they slipped a disk in lower back Time Seen by Provider: 06/20/21 15:54 Source: patient Mode of arrival: ambulatory Limitations: no limitations History of Present Illness: Patient is a very nice 51-year-old male presents to ED today with a complaint of lower back pain. Patient tells me every few years he will throw his back out and states his symptoms today feel similar. He states he was lifting something heavy that he knew he should not be lifting when he immediately began feeling pain to his lower back. He has some minor discomfort down his right leg. Not having any dysfunction of bowel or bladder. He does not endorse any saddle anesthesia. Patient states he was seen in our ED approximately 2 years ago for similar symptoms and states the medications provided helped he has not really had much issue with his back since then. MD elicited complaint: back pain Pertinent past history: prior back pain Onset (ago): day(s) (yesterday) Timing: constant Similar Symptoms Previously: Yes Radiation: other (R LE) Exacerbating factors: movement and walking Relieving factors: immobilization Context: while lifting Associated symptoms: Reports no associated symptoms; Deny abdominal pain, chills, difficulty walking, dysuria, fatigue, fever(s) or hematuria Review of Systems Const: Denies: fever(s), chills, body aches or fatigue Card: Denies: chest pain Resp: Denies: dyspnea GI: Denies: abdominal pain : Denies: flank pain, dysuria or hematuria Musc: Reports: back pain; Denies: neck pain, extremity pain, extremity swelling, joint pain or joint swelling Skin/Breast: Denies: rash Neuro: Denies: headache(s), numbness in extremities, weakness in extremities, sensory changes or difficulty walking PFSH ED PFSH: Medical History Back pain Degenerative joint disease Smoking greater than 20 pack years Surgical History Hx of tonsillectomy Social History Smoking and tobacco status: current every day smoker Alcohol intake: current Alcohol intake frequency: few times a month Marital status: Current occupational status: employed Physical Exam Const: COMMON NORMALS: no acute distress, average body habitus, patient oriented x3, no limitations, healthy appearing, alert and well nourished : COMMON NORMALS: Yes no CVA tenderness BLADDER/KIDNEY EXAM: Yes no CVA tenderness Back/Pelvis: COMMON NORMALS: no CVA tenderness THORACIC SPINE/UPPER BACK: Yes normal to inspection, Yes thoracic ROM normal, No thoracic spinal tenderness, No paraspinal muscle tenderness and No paraspinal muscle spasm LUMBAR SPINE/LOWER BACK: Yes normal to inspection, Yes pain with ROM, Yes lumbar spinal tenderness (mid to lower lumbar), Yes paraspinal muscle tenderness (across lower back), No paraspinal muscle spasm and Yes straight leg raise negative bilaterally PELVIS: Yes buttocks normal SACROILIAC JOINTS: Yes SI joints normal Extremity: COMMON NORMALS: normal to inspection and full ROM GENERAL: Yes normal exam except as noted Neuro: COMMON NORMALS: patient oriented x3, moves all extremities, no focal motor deficits, no sensory deficits noted and gait normal SENSORIUM/ORIENTATION: Yes alert GAIT: Yes Normal gait present MOTOR EXAM: 5/5 motor strength present throughout Skin: COMMON NORMALS: no rashes or lesions noted GENERAL SKIN EXAM: no rashes or lesions noted Course Vital Signs: Vital signs: Vital Signs Temperature 97.6 F 06/20/21 15:35 Pulse Rate 78 06/20/21 15:56 Respiratory Rate 16 06/20/21 15:56 Blood Pressure 177/110 06/20/21 15:56 Pulse Oximetry 98 06/20/21 15:56 MDM - Back Pain/Injury Medical Decision Making Patient states he already takes Ibuprofen daily for all my other aches and pains . Will add steroids and muscle relaxers as well as a short amount of pain meds as he states this regimen worked good two years ago when he was seen for similar symptoms. Return to ED precautions verbally given to patient. Discharge Plan Discharge Patient Disposition: Home Clinical Impression: Strain of lumbar region Condition: Stable Prescriptions: New cyclobenzaprine 10 mg tablet 10 mg PO TID Qty: 14 0RF prednisone 10 mg tablet 60 mg PO DAILY 5 Days Qty: 30 0RF acetaminophen-codeine 300-30 mg tablet 1 tab PO Q6H PRN (Reason: pain) Qty: 10 0RF Discontinued methylprednisolone [Medrol (Yony)] 4 mg tablets,dose pack See Rx Instructions PO PER PKG DIR Qty: 21 0RF Rx Instructions: PO PER PKG DIR No Action azithromycin 250 mg tablet See Rx Instructions PO .COMPLEX Qty: 6 0RF Rx Instructions: take 500 mg today (day 1), then 250 mg for 4 days (days 2-5) PO Discharge Orders: Discharge ED (Routine); Ordered 06/20/21 Ordered By: Mi Sánchez Coding Level of Care Code ED Slotter Operator Helper for Karthikeyan Cesar
[2021-06-20] MEDS: dexamethasone 10 mg/mL INJ 8 MG IM (16:24)
[2021-06-20] MEDS: ketorolac 30 mg/mL INJ IM (16:24)
== END 2021-06-20 16:39 | disposition home or self-care (01) ==
PROVIDERS: Emergency Provider Physician Assistant
DX: S39.012A Strain of muscle, fascia and tendon of lower back, initial encounter (principal); F17.210 Nicotine dependence, cigarettes, uncomplicated; X50.0XXA Overexertion from strenuous movement or load, initial encounter
CPT/HCPCS: 96372; 99283; J1100; J1885

== ENCOUNTER 2021-08-03 14:18 | Emergency (ER) | payer OTHER, SELFPAY ==
[2021-08-03 14:26] VITALS: BP 153/110; PULSE 82; RESP 18; TEMP 36.9; O2SAT 96; BMI 29.8
--- NOTE | 2021-08-03 14:46 | ED_ITS ---
HPI - Extremity Problem General: Chief complaint: Extremity Injury, Lower Stated complaint: right knee pain and swelling Time Seen by Provider: 08/03/21 14:31 Source: patient Mode of arrival: ambulatory Limitations: no limitations History of Present Illness: Patient is a 51-year-old male who presents to ED today with a complaint of right knee pain and swelling. Patient states he initially twisted the knee joint a couple of weeks ago but states he was able to control the pain and swelling with conservative treatments and states it had not really bothered him much until the last few days when he began noticing worsening pain and swelling. He states pain is now interfering with work and ambulation. Has not noticed any redness or warmth to the joint. He denies any swelling or pain to the distal aspect of his extremity. No calf pain. MD Complaint: joint swelling and joint pain Onset (ago): day(s) Pain Consistency: constant Location: right and lower extremity Radiation: none Relieving factors: nothing Exacerbating factors: range of motion, weight bearing and walking Associated symptoms: Deny chest pain or fever(s) Review of Systems Const: Denies: fever(s), chills or body aches Card: Denies: chest pain Resp: Denies: dyspnea Musc: Reports: joint pain (R knee) and joint swelling (R knee); Denies: extremity pain, extremity swelling, joint redness or joint warmth Neuro: Denies: numbness in extremities or sensory changes PFSH ED PFSH: Medical History Back pain Degenerative joint disease Smoking greater than 20 pack years Surgical History Hx of tonsillectomy Social History Smoking and tobacco status: current every day smoker Alcohol intake: current Alcohol intake frequency: few times a month Marital status: Current occupational status: employed Physical Exam Const: COMMON NORMALS: no acute distress, average body habitus, patient o riented x3, no limitations, healthy appearing, alert and well nourished GENERAL APPEARANCE: cooperative Extremity: COMMON NORMALS: capillary refill normal, no clubbing, cyanosis or edema, no calf tenderness and no pedal edema GENERAL: Yes normal exam except as noted RIGHT LOWER EXTREMITY: Yes knee joint Right knee: Yes inspection (swelling/effusion noted), Yes palpation (TTP anterior/medial/lateral joint lines), Yes ROM (limited secondary to swelling), Yes neurovascular exam (normal) and Yes other (no obvious joint laxity ) Neuro: COMMON NORMALS: patient oriented x3, moves all extremities, no focal motor deficits and no sensory deficits noted SENSORIUM/ORIENTATION: Yes alert Skin: COMMON NORMALS: no rashes or lesions noted GENERAL SKIN EXAM: no rashes or lesions noted TRAUMA: no lacerations or abrasions Course Vital Signs: Vital signs: Vital Signs Temperature 98.4 F 08/03/21 14:26 Pulse Rate 82 08/03/21 14:47 Respiratory Rate 16 08/03/21 14:47 Blood Pressure 153/110 08/03/21 14:47 Pulse Oximetry 95 08/03/21 14:47 MDM - Extremity (Nontraumatic) Medical Decision Making XRs showing effusion but otherwise negative. Will MISA wrap here and place patient on steroids and anti-inflammatories. We will get him follow-up with PCP for further evaluation of the knee and evaluation for advanced imaging if indicated. Lab Data Radiology Impressions Knee X-Ray 08/03/21 14:46 IMPRESSION: No acute osseous abnormalities. Joint effusion present. Discharge Plan Discharge Patient Disposition: Home Clinical Impression: Right knee injury Qualifiers: Encounter type: initial encounter Qualified Code(s): S89.91XA - Unspecified injury of right lower leg, initial encounter Condition: Stable Prescriptions: New prednisone 10 mg tablet 60 mg PO DAILY 5 Days Qty: 30 0RF acetaminophen-codeine 300-30 mg tablet 1 tab PO Q6H PRN (Reason: pain) Qty: 14 0RF Discontinued azithromycin 250 mg tablet See Rx Instructions PO .COMPLEX Qty: 6 0RF Rx Instructions: take 500 mg today (day 1), then 250 mg for 4 days (days 2-5) PO cyclobenzaprine 10 mg tablet 10 mg PO TID Qty: 14 0RF acetaminophen-codeine 300-30 mg tablet 1 tab PO Q6H PRN (Reason: pain) Qty: 10 0RF Discharge Orders: Discharge ED (Routine); Ordered 08/03/21 Ordered By: Mi Sánchez Patient Instructions: Knee Sprain (ED), Knee Pain (ED) Coding Level of Care Code ED Forklift Picker for Chg Fwd Exam Expanded Problem Focused
--- NOTE | 2021-08-03 14:46 | XRR_ITS ---
PROCEDURE INFORMATION: Exam: XR Right Knee Exam date and time: 08/03/2021 3:01 PM Age: 51 years old Clinical indication: Pain; Swelling or effusion of joint; Knee; Right; Additional info: Pain, swelling TECHNIQUE: Imaging protocol: XR Right knee. Views: 3 views. COMPARISON: No relevant prior studies available. FINDINGS: Bones/joints: Osseous structures are intact. Negative for fracture. Mild joint space narrowing of the medial compartment. Joint effusion present. Soft tissues: Normal. XR/XR knee RT 3V* [id number] IMPRESSION: No acute osseous abnormalities. Joint effusion present.
[2021-08-03 14:47] VITALS: BP 153/110; PULSE 82; RESP 16; O2SAT 95
--- NOTE | 2021-08-10 12:50 | DCPLANNER ---
Addendum entered by Yuko Irwin 08/24/21 21:21: Patient had a follow up appointment scheduled with Shara Lima - patient did attend appointment. Original Note: hedis manager had message to speak with patient about getting established with a primary care physician. hedis manager spoke with patient, and he would like for case managers to schedule a follow up appointment for patient with SUPPLY CHAIN CONSULTANT, Evelin Lima at Internal Medicine. hedis manager called the Internal Medicine clinic, spoke with Elizabeth, gave clinic patients information. A follow up appointment was scheduled for Sunday, August 17, 2021 at 9:45 with SUPPLY CHAIN CONSULTANT, Grzegorz Lima. hedis manager called patient and gave him the appointment information.
== END 2021-08-03 16:00 | disposition home or self-care (01) ==
PROVIDERS: Emergency Provider Physician Assistant
DX: S89.91XA Unspecified injury of right lower leg, initial encounter (principal); X50.1XXA Overexertion from prolonged static or awkward postures, initial encounter; F17.210 Nicotine dependence, cigarettes, uncomplicated; M25.461 Effusion, right knee
CPT/HCPCS: 73560; 73562; 99282

== ENCOUNTER 2021-08-17 10:46 | Outpatient (CLI) | payer OTHER, SELFPAY ==
[2021-08-17 11:09] LABS: Add Urine Microscopic? NO; Charge for UA Resulting for Rev
[2021-08-17 11:22] LABS: Bilirubin Urine Neg (Negative); Blood Urine 2+ (Negative); Glucose Urine UA Norm (Normal); Ketones Urine Negative (Negative); Leukocyte Esterase Urine Negative (Negative); Nitrate Urine Negative (Negative); Protein Urine Neg (Negative); Urine Appearance Clear (CLEAR); Urine Color Yellow (Yellow); Urobilinogen Urine Norm (Negative); pH Urine 5 (5-7)
[2021-08-17 11:29] LABS: Alanine Aminotransferase 14 U/L (0-41); Albumin Level 4.3 g/dL (3.5-5.2); Alkaline Phosphatase 78 IU/L (40-130); Anion Gap 15.3 (5-19); Aspartate Amino Transferase 20 U/L (0-40); Blood Urea Nitrogen 18 mg/dL (6-20); Calcium 7.8 mg/dL (8.5-10.5); Carbon Dioxide 24 mmol/L (22-29); Chloride 106 mmol/L (98-107); Globulin 2.6 g/dL (1.3-4.6); Glomerular Filtration Rate 101.1 mL/min (90-130); Glucose 93 mg/dL (65-115); Osmolality Calculated 294 mOsm/kg (285-295); Potassium 4.3 mmol/L (3.5-5.1); Sodium 141 mmol/L (136-145); Total Bilirubin 0.2 mg/dL (0.15-1.2); Total Protein 6.9 g/dL (6.6-8.7)
[2021-08-17 12:24] LABS: Magnesium 1.9 mg/dL (1.7-2.3)
[2021-08-17 12:41] LABS: 25 Hydroxy Vitamin D 24 ng/mL (30-100)
== END 2021-08-17 10:47 | disposition home or self-care (01) ==
LOC: LAB 10:48
PROVIDERS: Visit Provider Nurse Practitioner Family
DX: E83.51 Hypocalcemia (principal); I10 Essential (primary) hypertension
CPT/HCPCS: 80053; 81003; 82306; 82310; 83735; 83970

== ENCOUNTER → 2021-08-18 09:56 | Outpatient (BNVA) | payer OTHER, SELFPAY | PROVIDERS: Visit Provider Nurse Practitioner Family | DX: E83.51 Hypocalcemia (principal); Z86.39 Personal history of other endocrine, nutritional and metabolic disease | CPT/HCPCS: 84439; 84443 ==

== ENCOUNTER 2021-10-13 15:51 | Outpatient (CLI) | payer OTHER, SELFPAY ==
--- NOTE | 2021-10-13 16:00 | MR_ITS ---
WS: [id number] MRI RIGHT KNEE HISTORY: MEDIAL KNEE PAIN COMPARISON: Radiographs 08/03/2021. Anterior cruciate ligament: Intact. Posterior cruciate ligament: Intact. Medial collateral ligament: Increased T2 signal and thinning of the distal MCL. There is a partial te ar inferior to the joint space. Posterior lateral corner structures: Intact. Medial menisci: Abnormal signal throughout the posterior horn extends to the inferior and superior ar ticular surfaces. There is a complex tear involving a large portion of the meniscus. The anterior hor n is normal. Lateral meniscus: Intrasubstance degeneration in the posterior horn. Slight blunting of the free edge . There is increased signal along the inferior articular surface which does not extend through the en tire body of the meniscus. Extensor mechanism: Distal quadriceps tendon and patellar tendons are intact. Fluid and soft tissue: Moderate joint effusion. Soft tissue edema is mild. No Mederos's cyst. Osseous and articular structures: Patellofemoral compartment: Moderate chondromalacia patella. Full-thickness defects towards the chambers lar eminence and in the lateral facet. Mild joint space narrowing. Medial compartment: Mild narrowing of the medial compartment with small marginal osteophytes. Signifi cant thinning and loss of cartilage. There is marrow edema in the femoral condyle and the medial tibi al plateau. No acute fracture. Lateral compartment: Minimal narrowing of the joint space. 8 mm cartilage defect along the weightbear ing surface femoral condyle. MR/MR knee RT wo con* [id number] IMPRESSION: 1. Complex tear posterior horn medial meniscus. 2. Moderate joint effusion. 3. Partial but high-grade MCL below the knee joint. 4. Marrow edema medial femoral condyle and medial tibial plateau. 5. Mild chondromalacia of the patella. 6. Moderate chondromalacia in the medial compartment and mild in the LEFT comp artment. 7. Indeterminate but suspect there may be a small tear involving the free edge of the posterior horn lateral meniscus.
== END 2021-10-13 15:52 | disposition home or self-care (01) ==
LOC: RAD 15:54
PROVIDERS: PCP Nurse Practitioner Family; Visit Provider Nurse Practitioner Family
DX: S83.231A Complex tear of medial meniscus, current injury, right knee, initial encounter (principal); X58.XXXA Exposure to other specified factors, initial encounter; M25.561 Pain in right knee; M25.461 Effusion, right knee; M22.41 Chondromalacia patellae, right knee
CPT/HCPCS: 73721

== ENCOUNTER 2021-11-21 13:17 | Outpatient (CLI) | payer OTHER, SELFPAY ==
--- NOTE | 2021-11-21 14:30 | CT_ITS ---
WS: [id number] CT ABDOMEN AND PELVIS NONCONTRAST HISTORY: Microscopic Hematuria TECHNIQUE: Imaging performed through the abdomen and pelvis. Coronal and sagittal reformats are submi tted. All CT scans at [facility] use at least one of these dose optimization techniques: auto mated exposure control; mA and/or kV adjustment per patient size (includes targeted exams where dose is matched to clinical indication); or iterative reconstruction. DLP: 1296.83 mGy.cm COMPARISON: 06/02/2019 Lower thorax: Lung bases are clear. Visualized heart is normal. No hiatal hernia. Liver: Normal size liver. No mass or bile duct dilatation. Gallbladder: Mildly contracted gallbladder. No adjacent inflammation. Pancreas: Normal size and attenuation. Normal pancreatic duct. No pancreatitis or mass. Spleen: Normal. Adrenal glands: Normal RIGHT adrenal gland. Several small low-attenuation masses associated with the LEFT adrenal gland. The largest measures 2.7 x 1.2 cm. Adrenal masses are stable and consistent with adenomas. Right kidney: Normal size kidney with no mass or hydronephrosis. Left kidney: Normal size kidney with no mass or hydronephrosis. Vascular calcifications. No renal or ureteral calcification or obstruction. Aorta: Mild atherosclerosis abdominal aorta with no aneurysm. No free fluid, intraperitoneal air or significant lymphadenopathy. GI tract: Normal appendix. No GI tract obstruction or diverticulosis. Abdominal wall: Negative. No hernia. Pelvis: Minimally distended urinary bladder. No intraluminal filling defects. No significant prostate gland enlargement. Osseous structures: Mild increase in lumbar lordosis. No fractures. CT/CT abdomen pelvis wo con [id number] IMPRESSION: 1. No renal or ureteral obstruction or calcifications. 2. Normal appendix. 3. Negative urinary bladder. 4. Multiple LEFT adrenal adenomas. 5. Mild atherosclerosis aorta.
== END 2021-11-21 13:18 | disposition home or self-care (01) ==
PROVIDERS: Visit Provider Nurse Practitioner Family
DX: R31.21 Asymptomatic microscopic hematuria (principal); I70.0 Atherosclerosis of aorta; D35.02 Benign neoplasm of left adrenal gland
CPT/HCPCS: 74176

== ENCOUNTER 2022-01-22 09:06 | Emergency (ER) | payer OTHER, SELFPAY ==
[2022-01-22 09:10] VITALS: BP 159/99; PULSE 75; RESP 16; TEMP 36.9; O2SAT 98; BMI 30.5
--- NOTE | 2022-01-22 09:39 | USR_ITS ---
PROCEDURE INFORMATION: Exam: US Abdomen, Limited; Right Upper Quadrant Exam date and time: 01/22/2022 9:52 AM Age: 51 years old Clinical indication: Abdominal pain; Acute; Additional info: Ruq abd pain TECHNIQUE: Imaging protocol: Real time ultrasound of the abdomen with image documentation. Limited exam focused on the right upper quadrant. COMPARISON: CT abdomen pelvis con [id number] 11/21/2021 1:27 PM FINDINGS: Liver: Mildly enlarged. Gallbladder: No gallstones. No gallbladder wall thickening or pericholecystic fluid. Positive sonographic Hayes's sign, as per the coating mixer tender. This is a nonspecific finding. Biliary ducts: Normal. No stones. No dilation. Pancreas: Unremarkable as visualized. Right kidney: No mass. No definite stones. No hydronephrosis. US/US gall bladder [id number] IMPRESSION: No acute sonographic findings.
[2022-01-22 09:43] LABS: Bilirubin Urine Negative (Negative); Blood Urine Small (Negative); Glucose Urine UA Negative (Normal); Ketones Urine Negative (Negative); Leukocyte Esterase Urine Negative (Negative); Nitrate Urine Negative; Protein Urine Negative; Specific Gravity, Urine <= 1.005 (1.005-1.030); Urine Appearance Clear (CLEAR); Urine Color Yellow (Yellow); Urobilinogen Urine 0.2 mg/dL (Negative); pH Urine 5.5 (5-7)
[2022-01-22 09:53] LABS: Add Urine Microscopic? YES
[2022-01-22 09:56] LABS: Add Urine Culture? No; RBC Urine RARE /hpf (0-2)
--- NOTE | 2022-01-22 09:57 | W.ED.ABDPA2 ---
HPI - Abdominal Pain General: Chief Complaint: Abdominal Pain Stated Complaint: Left side abd pain Time Seen by Provider: 01/22/22 09:19 Source: patient Mode of arrival: ambulatory History of Present Illness: 51-year-old male presents emergency room with complaint of right upper quadrant nominal pain. The nurses notes his left-sided abdominal pain but I went and seen the patient he localizes it to the right upper quadrant. Not associated with urination. Has had similar episodes in the past they have been much less intense and usually resolve spontaneously to the point he states he cannot really tell me how long they lasted because they are only passing he does not really pay much attention. He does not notice anything that has exacerbated or relieved it. No previous abdominal surgeries. Patient has had asymptomatic microscopic hematuria in the past no history of kidney stones. He denies any fever sweats chills dysuria urgency or frequency vomiting or diarrhea. MD elicited complaint: abdominal pain Onset (ago): hour(s) Pain Consistency: constant Location: RUQ Severity: moderate Quality: cramping Radiation: R flank Migration to: no migration Exacerbating factors: nothing Relieving factors: nothing Associated Symptoms: Reports bloating, GI cramping and nausea; Denies anorexia, belching, change in bowel habits, change in stool character, chills, coffee ground emesis, constipation, diarrhea, dyspepsia, dysuria, excessive flatus, fever(s), heartburn, hematochezia, hematuria, hematemesis, fecal incontinence, loose stools, melena, poor appetite, syncope and vomiting Review of Systems Const: Denies: fever(s), chills, fatigue or malaise ENMT: Denies: throat pain, ear or mastoid pain, nasal discharge or nasal congestion Card: Denies: chest pain, palpitations, irregular heart rhythm or syncope Resp: Denies: dyspnea, productive cough or non-productive cough GI: Reports: abdominal pain, nausea, bloating and GI cramping; Denies: vomiting, hematemesis, coffee ground emesis, heartburn, diarrhea, constipation, belching, excessive flatus, fecal incontinence, change in bowel habits, change in stool character, hematochezia or melena : Denies: flank pain, difficulty urinating, dysuria, urinary frequency, urinary urgency or hematuria Skin/Breast: Denies: rash or pruritus PFSH ED PFSH: Medical History Back pain Degenerative joint disease History of hypothyroidism Smoking greater than 20 pack years Surgical History Hx of tonsillectomy Social History Smoking and tobacco status: current every day smoker Alcohol intake: current Alcohol intake frequency: few times a month Marital status: Current occupational status: employed Physical Exam Const: GENERAL APPEARANCE: cooperative and comfortable ORIENTATION/CONSCIOUSNESS: Yes awake HENMT: COMMON NORMALS: normocephalic, atraumatic and hearing grossly normal bilaterally HEAD & SCALP: normocephalic and atraumatic Resp: COMMON NORMALS: normal respiratory effort, No retractions, No use of accessory muscles and clear to auscultation bilaterally AUSCULTATION: clear to auscultation bilaterally Cardio: COMMON NORMALS: regular rate, regular rhythm and No murmurs present (Cardio) RATE: regular rate RHYTHM: regular rhythm GI: COMMON NORMALS: No hepatosplenomegaly present AUSCULTATION: Yes normoactive bowel sounds PALPATION: Yes Tenderness to palpation present (GI) Details: RUQ, No Guarding due to palpation present (GI) and Yes No hepatosplenomegaly present : COMMON NORMALS: Yes no CVA tenderness BLADDER/KIDNEY EXAM: Yes no CVA tenderness Back/Pelvis: COMMON NORMALS: no CVA tenderness Extremity: COMMON NORMALS: normal to inspection, capillary refill normal, no clubbing, cyanosis or edema, no calf tenderness and no pedal edema Skin: COMMON NORMALS: no rashes or lesions noted GENERAL SKIN EXAM: no rashes or lesions noted Course Vital Signs: Vital signs: Vital Signs Temperature 98.4 F 01/22/22 09:10 Pulse Rate 75 01/22/22 09:10 Respiratory Rate 16 01/22/22 10:07 Blood Pressure 159/99 01/22/22 09:10 Pulse Oximetry 98 01/22/22 09:10 Oxygen Delivery Me thod 01/22/22 09:10 MDM - Abdominal Pain Medical Decision Making Labs and imaging reviewed. LFTs normal ultrasound right upper quadrant unremarkable. Suspect he may have some biliary colic medicine biliary dyskinesia we will start him on a PPI refer him to GI for EGD and further evaluation including possible HIDA scan Medical Records I reviewed the patient's medical records. Lab Data I reviewed the patient's lab results. : 01/22/22 09:50 01/22/22 10:20 Labs/Radiology: Radiology Impressions Gallbladder Ultrasound 01/22/22 09:39 IMPRESSION: No acute sonographic findings. Laboratory Results WBC 12.7 10^3/uL (4.0-10.0) H 01/22/22 09:50 RBC 4.77 10^6/uL (4.1-5.3) 01/22/22 09:50 Hgb 15.2 g/dL (11.7-16.6) 01/22/22 09:50 Hct 45.0 % (42.0-52.0) 01/22/22 09:50 MCV 94.3 fl (80-94) H 01/22/22 09:50 MCH 31.9 pg (28.0-34.0) 01/22/22 09:50 MCHC 33.8 g/dL (30.0-36.0) 01/22/22 09:50 RDW 13.1 % (12.1-15.1) 01/22/22 09:50 Plt Count 248 10^3/cmm (130-400) 01/22/22 09:50 MPV 10.2 fL (7.4-10.4) 01/22/22 09:50 Neut % (Auto) 73.1 % 01/22/22 09:50 Lymph % (Auto) 18.8 % 01/22/22 09:50 Teller % (Auto) 5.0 % 01/22/22 09:50 Eos % (Auto) 2.4 % 01/22/22 09:50 Baso % (Auto) 0.4 % 01/22/22 09:50 Neut # (Auto) 9.29 10^3/uL (1.8-7.7) H 01/22/22 09:50 Lymph # (Auto) 2.4 10^3/uL (0.8-4.8) 01/22/22 09:50 Teller # (Auto) 0.6 10^3/uL (0.2-0.9) 01/22/22 09:50 Eos # (Auto) 0.3 10^3/uL (0.0-0.8) 01/22/22 09:50 Baso # (Auto) 0.1 10^3/uL (0.0-0.1) 01/22/22 09:50 Nucleated RBC % (auto) 0 % 01/22/22 09:50 Nucleated RBCs # 0.0 /100WBC 01/22/22 09:50 Sodium 141 mmol/L (136-145) 01/22/22 10:20 Potassium 3.8 mmol/L (3.5-5.1) 01/22/22 10:20 Chloride 106 mmol/L (98-107) 01/22/22 10:20 Carbon Dioxide 23 mmol/L (22-29) 01/22/22 10:20 Anion Gap 15.8 (5-19) 01/22/22 10:20 BUN 18 mg/dL (6-20) 01/22/22 10:20 Creatinine 0.9 mg/dL (0.7-1.2) 01/22/22 10:20 GFR Calculation 88.3 mL/min (90-130) L 01/22/22 10:20 Glucose 97 mg/dL (65-115) 01/22/22 10:20 Calculated Osmolality 294 mOsm/kg (285-295) 01/22/22 10:20 Calcium 8.6 mg/dL (8.5-10.5) 01/22/22 10:20 Total Bilirubin 0.2 mg/dL (0.15-1.2) 01/22/22 10:20 AST 13 U/L (0-40) 01/22/22 10:20 ALT 11 U/L (0-41) 01/22/22 10:20 Alkaline Phosphatase 75 U/L (40-130) 01/22/22 10:20 Total Protein 6.5 g/dL (6.6-8.7) L 01/22/22 10:20 Albumin 4.0 g/dL (3.5-5.2) 01/22/22 10:20 Globulin 2.5 g/dL (1.3-4.6) 01/22/22 10:20 Urine Color Yellow (Yellow) 01/22/22 09:20 Urine Appearance Clear (CLEAR) 01/22/22 09:20 Urine pH 5.5 (5-7) 01/22/22 09:20 Ur Specific [place] <= 1.005 (1.005-1.030) 01/22/22 09:20 Urine Protein Negative 01/22/22 09:20 Urine Glucose (UA) Negative (Normal) 01/22/22 09:20 Urine Ketones Negative (Negative) 01/22/22 09:20 Urine Blood Small (Negative) A 01/22/22 09:20 Urine Nitrate Negative 01/22/22 09:20 Urine Bilirubin Negative (Negative) 01/22/22 09:20 Urine Urobilinogen 0.2 mg/dL (Negative) 01/22/22 09:20 Ur Leukocyte Esterase Negative (Negative) 01/22/22 09:20 Urine RBC Rare /hpf (0-2) 01/22/22 09:20 Urine WBC None /hpf (0-5) 01/22/22 09:20 Ur Squamous Epith Cells None /hpf (0-5) 01/22/22 09:20 Amorphous Sediment Not Reportable 01/22/22 09:20 Urine Bacteria None /hpf (NONE) 01/22/22 09:20 Discharge Plan Discharge Patient Disposition: Home Clinical Impression: Abdominal pain, Biliary colic Condition: Stable Prescriptions: New pantoprazole 40 mg tablet,delayed release (DR/EC) 40 mg PO DAILY 56 Days Qty: 60 0RF No Action hydrochlorothiazide 12.5 mg tablet 12.5 mg PO DAILY Qty: 30 0RF cholecalciferol (vitamin D3) 1,250 mcg (50,000 unit) capsule 50,000 unit PO .Weekly 56 Days Qty: 8 0RF levothyroxine 25 mcg tablet 25 mcg PO DAILY 56 Days Qty: 56 0RF acetaminophen-codeine 300-30 mg tablet 1 tab PO Q6H PRN (Reason: pain) Qty: 14 0RF Discharge Orders: Discharge ED (Routine); Ordered 01/22/22 Ordered By: Juan Melton Discharge Diet: Usual diet Discharge Activity: Resume usual activity Patient Instructions: Abdominal Pain (ED), Opioid Safety, Pain Management Activity Restrictions/Additional Instructions: bus company manager will make arrangements for her to follow-up with surgery for further evaluation including possible endoscopy. Start pantoprazole 40 mg daily avoid carbonated beverages alcohol spicy foods tomato based products. Coding Level of Care Code ED Medical Transcriptionist for Chg Fwd Exam Comprehensive
[2022-01-22 10:03] LABS: Basophils # 0.1 10^3/uL (0.0-0.1); Basophils % 0.4 %; Eosinophils # 0.3 10^3/uL (0.0-0.8); Eosinophils % 2.4 %; Hemoglobin 15.2 g/dL (11.7-16.6); Lymphocytes # 2.4 10^3/uL (0.8-4.8); Lymphocytes % 18.8 %; Mean Corpuscular HGB Conc 33.8 g/dL (30.0-36.0); Mean Corpuscular Hemoglobin 31.9 pg (28.0-34.0); Mean Corpuscular Volume 94.3 fl (80-94); Mean Platelet Volume 10.2 fL (7.4-10.4); Monocytes # 0.6 10^3/uL (0.2-0.9); Neutrophils # 9.29 10^3/uL (1.8-7.7); Neutrophils % 73.1 %; Nucleated Red Blood Cells % 0 %; Platelet Count 248 10^3/cmm (130-400); Red Blood Count 4.77 10^6/uL (4.1-5.3); Red Cell Distribution Width 13.1 % (12.1-15.1); White Blood Count 12.7 10^3/uL (4.0-10.0)
[2022-01-22 10:07] VITALS: RESP 16
[2022-01-22] MEDS: morphine 4 mg/mL SDV 1 mL IVP (10:07)
[2022-01-22] MEDS: ondansetron 2 mg/ML SDV 2 mL 4 MG IVP (10:07)
[2022-01-22 11:02] LABS: Alanine Aminotransferase 11 U/L (0-41); Alkaline Phosphatase 75 U/L (40-130); Anion Gap 15.8 (5-19); Aspartate Amino Transferase 13 U/L (0-40); Blood Urea Nitrogen 18 mg/dL (6-20); Calcium 8.6 mg/dL (8.5-10.5); Carbon Dioxide 23 mmol/L (22-29); Chloride 106 mmol/L (98-107); Globulin 2.5 g/dL (1.3-4.6); Glomerular Filtration Rate 88.3 mL/min (90-130); Glucose 97 mg/dL (65-115); Osmolality Calculated 294 mOsm/kg (285-295); Potassium 3.8 mmol/L (3.5-5.1); Sodium 141 mmol/L (136-145); Total Bilirubin 0.2 mg/dL (0.15-1.2); Total Protein 6.5 g/dL (6.6-8.7)
--- NOTE | 2022-01-23 13:49 | DCPLANNER ---
Addendum entered by Yuko Irwin 01/27/22 13:40: water manager received the following message from general surgery regarding follow up appointment: No answer, this is 3rd attempt.. Mailing letter On 01/24/22 @ 11:37 Jane Smith Wrote To Motor Pool Clerk Front Off [facility] 01/24 On 01/23/22 @ 14:59 Jane Smith Wrote To Motor Pool Clerk Front Off [facility] 01/23 Original Note: water manager had message to schedule a follow up appointment for patient with general surgery. water manager sent patients information to the front office staff at general surgery. Patients information will be printed and reviewed. Clinic will call patient with appointment information.
== END 2022-01-22 13:27 | disposition home or self-care (01) ==
PROVIDERS: Emergency Provider Family Medicine
DX: K80.50 Calculus of bile duct without cholangitis or cholecystitis without obstruction (principal); F17.210 Nicotine dependence, cigarettes, uncomplicated
CPT/HCPCS: 36415; 76705; 80053; 81001; 85025; 96374; 96375; 99285; J2270; J2405

== ENCOUNTER → 2022-04-04 08:55 | Outpatient (BNVA) | payer OTHER, SELFPAY | PROVIDERS: Visit Provider Student in an Organized Health Care Education/Training Program | DX: S83.249A Other tear of medial meniscus, current injury, unspecified knee, initial encounter (principal); X50.9XXA Other and unspecified overexertion or strenuous movements or postures, initial encounter | CPT/HCPCS: 73560; 73565 ==

== ENCOUNTER 2022-04-25 05:53 | Day surgery (SDC) | payer OTHER, SELFPAY ==
[2022-04-21 13:08] VITALS: BMI 29.8
[2022-04-25] VITALS (11 sets, daily range): BP systolic 104–149; BP diastolic 68–110; PULSE 75–90; RESP 14–17; TEMP 36.3–36.6; O2SAT 96–98
[2022-04-25] MEDS: acetaminophen 1,000 MG/100 ML PIGGYBACK 400 MG IV (06:26)
[2022-04-25] MEDS: ketorolac 30 mg/mL INJ IVP (06:26)
[2022-04-25] MEDS: sodium chloride 0.9% 1,000 ML 30 ML IV (06:26)
--- NOTE | 2022-04-25 06:57 | W.PM.OPSUD ---
Surgery/Procedure H&P Update DATE OF PROCEDURE: April 25, 2022 DATE H&P PERFORMED: 04/04/22 CHANGES TO PREVIOUS DOCUMENTATION: None PREOP DIAGNOSIS: Right knee medial meniscus tear PRIMARY INDICATION FOR PROCEDURE: Right Knee Medial Meniscus Tear PLANNED PROCEDURE: Operation Date: 04/25/22 07:00 Proposed Procedures p Right knee diagnostic and surgical arthroscopy with partial medial meniscectomy,36571, M25.561(Right) - Messi Zepeda DO
[2022-04-25] MEDS: clindamycin 900 MG/50 ML PREMIX 100 MG IV (07:00)
--- NOTE | 2022-04-25 07:57 | ANES.PREANE2 ---
Pre-Anesthetic Assessment Height/Weight: Height 1.83 m Weight 99.79 kg Temp Pulse Resp BP Pulse Ox O2 Del Method 97.4 F L 78 16 149/110 98 04/25/22 06:24 04/25/22 06:24 04/25/22 06:24 04/25/22 06:24 04/25/22 06:24 04/25/22 06:26 Preop Diagnosis: Right knee medial meniscus tear Operation Date: 04/25/22 07:00 Proposed Procedures p Right knee diagnostic and surgical arthroscopy with partial medial meniscectomy,34138, M25.561(Right) - Messi Zepeda DO Familial anesthetic complications: none Was Beta Mila taken within 24 hours: N/A Was Clonidine taken within 24 hours: N/A Last intake: Intake Last Liquid Date 04/24/22 Last Liquid Time 23:45 Last Solid Date 04/24/22 Last Solid Time 21:30 Social Tobacco and No alcohol Exam alert, oriented x 3 and regular rate & rhythm rhonchi Airway Submandibular: within normal limits Cervical ROM: within normal limits Mallampati: Class II Dentition: chipped Comments: Comments: Poor dentition, missing several Pulmonary Chronic Obstructive Pulmonary Disease CV/HEM Hypertension Metabolic Thyroid Disease Anesthetic Plan ASA status: 3 Anesthesia: General and Regional (specify below) (right adductor blk) Medications/Allergies Allergies Allergy/AdvReac Type Severity Reaction Status Date / Time Penicillins Allergy Unknown Verified 04/04/22 09:01 Current Medications Generic Name Dose Route Start Last Admin Trade Name Freq PRN Reason Stop Dose Admin Sodium Chloride 1,000 mls @ 30 mls/hr 04/25/22 06:00 04/25/22 06:26 Sodium Chloride 0.9% IV 04/26/22 05:59 30 mls/hr .Q24H SINGH Administration PFSH Anesthesia Medical History Back pain Degenerative joint disease History of hypothyroidism Smoking greater than 20 pack years Surgical History Hx of tonsillectomy Social History Smoking and tobacco status: current every day smoker Alcohol intake: current Alcohol intake frequency: few times a month Marital status: Current occupational status: employed Data Anesthesia Cardiac Studies: No Data to Display Anesthesia Procedures Nerve Block Nerve Block 1: Main Anesthesia: general anesthesia Time Out Performed: Yes Consent: requested by attending/covering physician, from patient, risks and benefits reviewed and patient agrees to proceed Nerve block location: adductor canal (right) Anesthesia monitors applied: pulse oximetry, EKG, BP cuff and oxygen Nerve block position: supine Anesthetic Used: ropivicaine 0.5% Amount of anesthesia used (mL): 20 Ultrasound used to: recognize landmarks Nerve Stimulator Used?: No Interscalene/Femoral BLK: 4 stimuplex 21 g needle used for position and inplane approach Injection: neg aspiration of heme Patient Tolerated Procedure: well Complications: none
--- NOTE | 2022-04-25 08:16 | P.OP_ITS ---
Brief Operative Note Date of procedure: 04/29/22 Pre-op diagnosis: Knee medial meniscus tear, chondromalacia Post-op diagnosis: same (Patellofemoral and medial chondromalacia, lateral meniscus tear) Procedure Done: Right knee diagnostic and surgical arthroscopy partial medial meniscectomy Right knee diagnostic and surgical arthroscopy partial lateral meniscectomy Right knee diagnostic and surgical arthroscopy medial and patellofemoral compartment chondroplasties Right knee diagnostic and surgical arthroscopy extensive synovectomy of medial, lateral, patellofemoral compartments Surgeon: Messi Zepeda Estimated blood loss (mL): 2 Complications: None Post-op Plan: Patient taken to PACU in stable condition will receive appropriate discharge instructions as well as pain medication DVT prophylaxis postoperatively. We will follow-up with me in the office in 2 weeks. Will be weight-bear as tolerated to the right lower extremity. Patient understands agrees with current plan. All questions answered. Condition: stable Disposition: same day Coding Level of Care Code Acute Rail Equipment Operator for Karthikeyan Cesar
--- NOTE | 2022-04-25 08:16 | P.OP_ITS ---
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 Right knee extensive synovitis Procedure done: Right knee diagnostic and surgical arthroscopy partial medial meniscectomy Right knee diagnostic and surgical arthroscopy partial lateral meniscectomy Right knee diagnostic and surgical arthroscopy medial and patellofemoral compartment chondroplasties Right knee diagnostic and surgical arthroscopy extensive synovectomy of medial, lateral, patellofemoral compartments Surgeon: Messi Zepeda DO Estimated blood loss: 2 mL 33 minutes IV fluids: 800 mL Complications: None Condition: stable Disposition: same day Brief History: Patient's been seen and evaluated in the outpatient setting is a 52-year-old male with ongoing and worsening right knee pain. Patient has failed conservative treatment he had had an MRI which showed a medial meniscus tear as well as possible intrasubstance tear of the lateral meniscus. He is failed conservative treatment and unfortunately he has had to hold off on getting anything done as he had to continue working. After failed conservative treatment we talked about treatment options for nonoperative and operative intervention. Understanding his risk benefits complication alternatives surgical nonsurgical treatment options he agrees to proceed with surgical intervention. All questions answered. Patient elects to proceed with surgery. Procedure: Patient seen evaluated in the preoperative holding area. Consent was reviewed and signed with patient. Correct extremity was then marked. Patient was then seen by anesthesia and taken back to the operative suite. Placed onto the OR table safely in supine position. All bony prominences well-padded patient was appropriate secured to the bed. Patient then underwent anesthesia per the anesthesia department once appropriately anesthetized patient had nonsterile tourniquet applied to the right eye. Then right lower extremity was then prepped and draped in standard orthopedic fashion. Final timeout performed. Patient received appropriate preoperative antibiotics. Patient received local anesthesia around the portal sites as well as intra- articular. Esmarch tourniquet was used exsanguinate the right lower extremity. Tourniquet insufflated to 250 mmHg. Started with inferior lateral portal with a standard 2 portal vertical incision technique for diagnostic and surgical arthroscopy of the right knee. Started with inferior lateral portal and introduced the arthroscope. Visualization of the suprapatellar pouch was free of loose bodies with noticeable synovitis. Then visualized the medial gutter which was free of any loose bodies Entered the medial compartment established my working portal utilizing spinal needle outside in technique. Small incision established my working portal and visualizing the medial compartment there was grade 2?3 chondromalacia. Posteriorly and the meniscus there was a complex tear that was unable to be repaired. At this point time I then subsequently utilized an arthroscopic shaver and basket forceps to carry out a partial medial meniscectomy to stable meniscal tissue. I introduced the arthroscopic probe and the meniscal root was intact. I finalize my partial medial meniscectomy with kneeling the meniscal edges with a thermal wand. Next I did perform a complete apartment chondroplasty of the medial compartment with a arthroscopic shaver and thermal wand. Next I introduced the shaver into the intercondylar notch the ACL and PCL were intact synovectomy of the infrapatellar fat pad was performed. I then introduced into the lateral compartment the lateral compartment had grade I and II chondromalacia. There is found to be a large horizontal tear at the posterior horn and into the body of the lateral meniscus. I then performed a partial lateral meniscectomy utilizing basket forceps arthroscopic shaver and annealed the edges with a thermal wand to stable meniscal tissue this completed my lateral compartment work. Next I visualize the lateral gutter which was free of loose bodies and introduced the arthroscope back into the patellofemoral compartment. Patellofemoral compartment was found to have grade 2?3 chondromalacia and arthroscopic shaver was used to perform a chondroplasty of this compartment particularly of the trochlear groove. Final edges were then sealed with thermal wand and this completed the patellofemoral compartment chondroplasty. A synovectomy was performed completely of the medial lateral and patellofemoral compartments. This completed diagnostic surgical arthroscopy. Tourniquet was deflated. Hemostasis satisfactory. Fluid was suctioned from the knee, instruments were removed. Portal sites were closed with interrupted nylon stitches. Xeroform 4 x 4's ABD soft roll and Curlex with a 6 sensation wrap for dressing. Patient was then awakened from anesthesia and taken to PACU in stable condition. Disposition: Patient taken to PACU in stable condition recovering well will be weightbearing as tolerated to the right lower extremity. Received appropriate discharge instruction as well as pain medication and postoperative DVT prophylaxis. Patient will follow-up with me in the office in 2 weeks. Any questions or concerns and contact the office.
--- NOTE | 2022-04-25 08:16 | PM.PACU ---
PACU note Narrative: Patient taken to PACU in stable condition recovering well. Dressings clean dry and intact. Patient is able to wiggle toes plantarflex dorsiflex ankle distal pulses palpable. Sensation tact light touch distally. Exam: awake Disposition: discharged
[2022-04-25] MEDS: HYDROmorphone 1 mg/mL INJ 1 mL 0.5 MG IVP (08:27)
[2022-04-25] MEDS: HYDROcodone-acetaminophen 5-325 mg Tablet 1 TAB PO (09:10)
--- NOTE | 2022-04-25 13:48 | ANE.PACU2 ---
Inpatient post-anesthesia follow up: Airway intact: Yes Vital signs: Temperature 97.6 F Pulse Rate 78 Respiratory Rate 16 Blood Pressure 129/89 Pulse Oximetry 96 Oxygen Delivery Me thod Room Air Oxygen Flow Rate 6 Fraction of Inspir ed Oxygen Hydration adequate: Yes Nausea and vomiting: No Pain level: 2 Mental status: Baseline
== END 2022-04-25 09:36 | disposition home or self-care (01) ==
PROVIDERS: Visit Provider Student in an Organized Health Care Education/Training Program
PROC: (CPT 29870; principal; 2022-04-25 07:00)
PROC: (CPT 29876; 2022-04-25 07:00)
DX: S83.241A Other tear of medial meniscus, current injury, right knee, initial encounter (principal); X58.XXXA Exposure to other specified factors, initial encounter; J44.9 Chronic obstructive pulmonary disease, unspecified; I10 Essential (primary) hypertension; E03.9 Hypothyroidism, unspecified; F17.210 Nicotine dependence, cigarettes, uncomplicated
CPT/HCPCS: 29876; 29880; J0131; J1100; J1170; J1885; J2370; J2405; J2704; J2795; J3010; J3490; J7030

== ENCOUNTER → 2022-05-15 07:54 | Outpatient (BNVA) | payer OTHER, SELFPAY | PROVIDERS: Visit Provider Student in an Organized Health Care Education/Training Program | DX: S83.241A Other tear of medial meniscus, current injury, right knee, initial encounter (principal); S83.281A Other tear of lateral meniscus, current injury, right knee, initial encounter; X58.XXXA Exposure to other specified factors, initial encounter | CPT/HCPCS: 73560; 73565 ==

== ENCOUNTER → 2022-09-07 15:24 | Outpatient (BNVA) | payer OTHER, SELFPAY | PROVIDERS: Visit Provider Student in an Organized Health Care Education/Training Program | DX: M94.261 Chondromalacia, right knee (principal); Z48.89 Encounter for other specified surgical aftercare; S83.241A Other tear of medial meniscus, current injury, right knee, initial encounter; S83.281A Other tear of lateral meniscus, current injury, right knee, initial encounter; X58.XXXA Exposure to other specified factors, initial encounter | CPT/HCPCS: 73560; 73565 ==

== ENCOUNTER 2023-04-25 08:03 | Emergency (ER) | payer OTHER, SELFPAY ==
[2023-04-25 08:12] VITALS: BP 175/115; PULSE 93; RESP 18; TEMP 36.4; O2SAT 96; BMI 31.1
--- NOTE | 2023-04-25 08:18 | XR_ITS ---
WS: [id number] Portable AP upright chest, 04/25/2023 Clinical Data: dyspnea/cough Comparison: Two-view chest, 08/01/2019 Findings: There is minimal patchy opacity extending from the left hilum into the left lower lobe whic h could represent atelectasis and/or pneumonia. No nodules, masses or effusions are seen. The heart i s normal. The pulmonary vascularity is not increased. No pneumonia or pneumothorax is seen. Monitor l jennifer are on the chest wall. Impression: Minimal patchy opacity extending from left hilum in the left lower lobe.
--- NOTE | 2023-04-25 08:18 | CTR_ITS ---
PROCEDURE INFORMATION: Exam: CT Head Without Contrast Exam date and time: 04/25/2023 8:32 AM Age: 53 years old Clinical indication: Weakness, extremity; Patient HX: Bilateral hand weakness with hypertension. ; Additional info: Weakness, elevated blood pressure TECHNIQUE: Imaging protocol: Computed tomography of the head without contrast. Radiation optimization: All CT scans at this facility use at least one of these dose optimization techniques: automated exposure control; mA and/or kV adjustment per patient size (includes targeted exams where dose is matched to clinical indication); or iterative reconstruction. COMPARISON: No relevant prior studies available. RADIATION DOSE METRICS: Total DLP (mGy-cm): 1174.31 FINDINGS: Brain: There is no acute intracranial hemorrhage. No extra-axial fluid collection. No evidence of acute infarct. Bowden white differentiation is intact. There is no evidence of mass. There is no mass effect or midline shift. Cerebral ventricles: No ventriculomegaly. Paranasal sinuses: Left frontal sinus is completely opacified. There is mucosal in remaining paranasal sinuses. There is fluid/secretions in bilateral maxillary sinuses. Mastoid air cells: No significant mastoid effusion. Bones/joints: No acute fracture. Soft tissues: Unremarkable as visualized. CT/CT head wo con* [id number] IMPRESSION: No evidence of acute intracranial abnormality. No acute hemorrhage. No evidence of acute infarct or mass.
--- NOTE | 2023-04-25 08:19 | ED_ITS ---
HPI - General Adult 2 General: Chief complaint: General Medical Stated complaint: BP Time Seen by Provider: 04/25/23 08:04 Source: patient Mode of arrival: ambulatory History of Present Illness: 53-year-old male presents to the emergen cy room with complaints of elevated blood pressure mild chest discomfort with numbness and tingling initially in his left hand now in his right hand and the left it is the entire arm. He had any nausea or vomiting no diaphoresis or shortness of breath. No vision or speech changes. The symptoms been going on for 10 to 11 days. Associated symptoms: Deny chest pain, dyspnea or rash Review of Systems 2 Const: Denies: fever(s) or chills Card: Denies: chest pain Resp: Denies: dyspnea GI: Denies: abdominal pain : Denies: dysuria, urinary frequency or urinary urgency Musc: Denies: neck pain or back pain Skin/Breast: Denies: rash PFSH ED 2 PFSH: Medical History History of hypothyroidism Back pain Smoking greater than 20 pack years Degenerative joint disease Surgical History Hx of tonsillectomy Social History Smoking and tobacco/nicotine status: current every day tobacco/nicotine user Alcohol intake: current Alcohol intake frequency: few times a month Substance/Drug Use: never Marital status: Current occupational status: employed Physical Exam 2 Const: GENERAL APPEARANCE: cooperative and comfortable O RIENTATION/CONSCIOUSNESS: Yes awake, Yes oriented to person, Yes oriented to place and Yes oriented to time HENMT: COMMON NORMALS: normocephalic, atraumatic and hearing grossly normal bilaterally HEAD & SCALP: normocephalic and atraumatic Resp: COMMON NORMALS: normal respiratory effort, No retractions, No use of accessory muscles and clear to auscultation bilaterally AUSCULTATION: clear to auscultation bilaterally Cardio: COMMON NORMALS: regular rate, regular rhythm and No murmurs present (Cardio) RATE: regular rate RHYTHM: regular rhythm GI: COMMON NORMALS: Soft to palpation and No hepatosplenomegaly present A USCULTATION: Yes normoactive bowel sounds PALPATION: Yes Soft to palpation, No Tenderness to palpation present (GI), No Guarding due to palpation present (GI) and Yes No hepatosplenomegaly present Extremity: COMMON NORMALS: normal to inspection, capillary refill normal, no clubbing, cyanosis or edema, no calf tenderness and no pedal edema Neuro: SENSORIUM/ORIENTATION: Yes oriented to person, Yes oriented to place and Yes oriented to time Skin: COMMON NORMALS: no rashes or lesions noted GENERAL SKIN EXAM: no rashes or lesions noted Course 2 Vital Signs: Vital signs: Vital Signs Temperature 97.6 F 04/25/23 08:12 Pulse Rate 73 04/25/23 08:50 Respiratory Rate 18 04/25/23 10:35 Blood Pressure 135/92 04/25/23 10:35 Pulse Oximetry 94 04/25/23 08:50 Oxygen Delivery Me thod Room Air 04/25/23 08:50 MDM - General Adult Medical Decision Making Labs and imaging reviewed no acute changes. Blood pressure improved with medications given discharged home 81 mg aspirin daily 5 mg of amlodipine follow- up with primary care doctor within the next week to recheck blood pressure Medical Records I reviewed the patient's medical records. Lab Data I reviewed the patient's lab results. 04/25/23 08:27 04/25/23 08:[address] 04/25/23 08:18 IMPRESSION: No evidence of acute intracranial abnormality. No acute hemorrhage. No evidence of acute infarct or mass. Laboratory Results WBC 9.69 10^3/uL (3.29-11.43) 04/25/23 08:27 RBC 5.06 10^6/uL (3.85-5.65) 04/25/23 08:27 Hgb 15.90 g/dL (11.27-16.99) 04/25/23 08:27 Hct 47.5 % (37-53) 04/25/23 08:27 MCV 93.9 fl (82-101) 04/25/23 08:27 MCH 31.4 pg (27-33) 04/25/23 08:27 MCHC 33.5 g/dL (30-55) 04/25/23 08:27 RDW 13.1 % (12.1-15.1) 04/25/23 08:27 Plt Count 245 10^3/cmm (157-399) 04/25/23 08:27 MPV 9.8 fL (7.4-10.4) 04/25/23 08:27 Neut % (Auto) 64.8 % 04/25/23 08:27 Lymph % (Auto) 25.0 % 04/25/23 08:27 Hunt % (Auto) 6.7 % 04/25/23 08:27 Eos % (Auto) 2.6 % 04/25/23 08:27 Baso % (Auto) 0.5 % 04/25/23 08:27 Neut # (Auto) 6.28 10^3/uL (1.8-7.7) 04/25/23 08:27 Lymph # (Auto) 2.4 10^3/uL (0.8-4.8) 04/25/23 08:27 Hunt # (Auto) 0.7 10^3/uL (0.2-0.9) 04/25/23 08:27 Eos # (Auto) 0.3 10^3/uL (0.0-0.8) 04/25/23 08:27 Baso # (Auto) 0.1 10^3/uL (0.0-0.1) 04/25/23 08:27 Nucleated RBC % (auto) 0 % 04/25/23 08: Nucleated RBCs # 0.0 /100WBC 04/25/23 08:27 Sodium 139 mmol/L (136-145) 04/25/23 08:27 Potassium 4.2 mmol/L (3.5-5.1) 04/25/23 08:27 Chloride 101 mmol/L (98-107) 04/25/23 08:27 Carbon Dioxide 27 mmol/L (22-29) 04/25/23 08:27 Anion Gap 15.2 (5-19) 04/25/23 08:27 BUN 16 mg/dL (6-20) 04/25/23 08:27 Creatinine 1.0 mg/dL (0.7-1.2) 04/25/23 08:27 GFR Calculation 77.6 mL/min (90-130) L 04/25/23 08:27 Glucose 118 mg/dL (65-115) H 04/25/23 08:27 Calculated Osmolality 290 mOsm/kg (285-295) 04/25/23 08:27 Calcium 9.2 mg/dL (8.5-10.5) 04/25/23 08:27 Total Bilirubin 0.2 mg/dL (0.15-1.2) 04/25/23 08:27 AST 14 U/L (0-40) 04/25/23 08:27 ALT 13 U/L (0-41) 04/25/23 08: Alkaline Phosphatase 83 U/L (40-130) 04/25/23 08:27 Total Protein 7.4 g/dL (6.6-8.7) 04/25/23 08:27 Albumin 4.2 g/dL (3.5-5.2) 04/25/23 08: Globulin 3.2 g/dL (1.3-4.6) 04/25/23 08:27 Urine Color Yellow (Yellow) 04/25/23 09:30 Urine Appearance Clear (CLEAR) 04/25/23 09:30 Urine pH 5 (5-7) 04/25/23 09:30 Ur Specific [place] 1.015 (1.005-1.030) 04/25/23 09:30 Urine Protein Neg (Negative) 04/25/23 09:30 Urine Glucose (UA) Norm (Normal) 04/25/23 09:30 Urine Ketones Negative (Negative) 04/25/23 09:30 Urine Blood 2+ (Negative) H 04/25/23 09:30 Urine Nitrate Negative (Negative) 04/25/23 09:30 Urine Bilirubin Neg (Negative) 04/25/23 09:30 Urine Urobilinogen Norm mg/dL (Negative) 04/25/23 09:30 Ur Leukocyte Esterase Negative (Negative) 04/25/23 09:30 Urine RBC 0-4 /hpf (0-2) H 04/25/23 09:30 Urine WBC None /hpf (0-5) 04/25/23 09:30 Ur Squamous Epith Cells 0-4 /hpf (0-5) H 04/25/23 09:30 Amorphous Sediment Not Reportable 04/25/23 09:30 Urine Bacteria None /hpf (NONE) 04/25/23 09:30 Urine Mucus None /hpf 04/25/23 09:30 All radiology interpretation(s) finalized by discharge Discharge Plan Discharge Patient Disposition: Home Clinical Impression: Hypertension Condition: Stable Prescriptions: New amlodipine 5 mg tablet 5 mg PO DAILY Qty: 30 0RF aspirin 81 mg tablet,delayed release (DR/EC) 81 mg PO DAILY Qty: 30 0RF No Action ibuprofen 200 mg Tablet 600 mg PO Q6H PRN (Reason: Pain) Discharge Orders: Discharge ED (Routine); Ordered 04/25/23 Ordered By: Juan Melton Discharge Diet: Usual diet Discharge Activity: Increase activity as tolerated Patient Instructions: Opioid Safety, Pain Management Activity Restrictions/Additional Instructions: Thank you for choosing [facility] for your healthcare needs today. Please realize this is an emergency room and that we are providing you with a medical screening exam and this may not be complete and all inclusive of all the testing and or work up that you may need to determine your ailment or severity of your illness. It is very important that you follow up as instructed or that you return to the Emergency Department should you have concerns or if your condition changes or worsens in any way. You were seen today for elevated blood pressure your blood pressure improved while in the emergency room there is no evidence of stroke on your head CT or on exam. Recommend you start amlodipine 5 mg once daily recheck with your doctor within the next week also recommend baby aspirin daily. Coding Level of Care Code ED Imaging Account Manager for Karthikeyan Cesar
[2023-04-25] MEDS: labetalol 5 mg/mL SDV 20mL 10 MG IVP (08:30)
[2023-04-25 08:34] LABS: Basophils # 0.1 10^3/uL (0.0-0.1); Basophils % 0.5 %; Eosinophils # 0.3 10^3/uL (0.0-0.8); Eosinophils % 2.6 %; Hematocrit 47.5 % (37-53); Lymphocytes # 2.4 10^3/uL (0.8-4.8); Mean Corpuscular HGB Conc 33.5 g/dL (30-55); Mean Corpuscular Hemoglobin 31.4 pg (27-33); Mean Corpuscular Volume 93.9 fl (82-101); Mean Platelet Volume 9.8 fL (7.4-10.4); Monocytes # 0.7 10^3/uL (0.2-0.9); Monocytes % 6.7 %; Neutrophils # 6.28 10^3/uL (1.8-7.7); Neutrophils % 64.8 %; Nucleated Red Blood Cells % 0 %; Platelet Count 245 10^3/cmm (157-399); Red Blood Count 5.06 10^6/uL (3.85-5.65); Red Cell Distribution Width 13.1 % (12.1-15.1); White Blood Count 9.69 10^3/uL (3.29-11.43)
[2023-04-25 08:49] LABS: Alanine Aminotransferase 13 U/L (0-41); Albumin Level 4.2 g/dL (3.5-5.2); Alkaline Phosphatase 83 U/L (40-130); Anion Gap 15.2 (5-19); Aspartate Amino Transferase 14 U/L (0-40); Blood Urea Nitrogen 16 mg/dL (6-20); Calcium 9.2 mg/dL (8.5-10.5); Carbon Dioxide 27 mmol/L (22-29); Chloride 101 mmol/L (98-107); Creatinine Clr Calc Pharmacy 104.2317; Globulin 3.2 g/dL (1.3-4.6); Glomerular Filtration Rate 77.6 mL/min (90-130); Glucose 118 mg/dL (65-115); Osmolality Calculated 290 mOsm/kg (285-295); Potassium 4.2 mmol/L (3.5-5.1); Sodium 139 mmol/L (136-145); Total Bilirubin 0.2 mg/dL (0.15-1.2); Total Protein 7.4 g/dL (6.6-8.7)
[2023-04-25 08:50] VITALS: BP 133/93; PULSE 73; RESP 18; O2SAT 94
[2023-04-25 09:51] LABS: Urine Color Yellow (Yellow)
[2023-04-25 09:52] LABS: Add Urine Microscopic? YES; Bilirubin Urine Neg (Negative); Blood Urine 2+ (Negative); Glucose Urine UA Norm (Normal); Ketones Urine Negative (Negative); Leukocyte Esterase Urine Negative (Negative); Nitrate Urine Negative (Negative); Protein Urine Neg (Negative); Specific Gravity, Urine 1.015 (1.005-1.030); Urine Appearance Clear (CLEAR); Urobilinogen Urine Norm (Negative); pH Urine 5 (5-7)
[2023-04-25 10:09] LABS: Add Urine Culture? No; RBC Urine 0-4 /hpf (0-2); Squamous Epithelial Cell Urine 0-4 /hpf (0-5)
[2023-04-25 10:35] VITALS: BP 135/92; RESP 18
== END 2023-04-25 10:37 | disposition home or self-care (01) ==
PROVIDERS: Emergency Provider Family Medicine
DX: I10 Essential (primary) hypertension (principal); Z72.0 Tobacco use
CPT/HCPCS: 70450; 71045; 80053; 81001; 85025; 96374; 99285; J3490

== ENCOUNTER → 2023-05-08 10:07 | Outpatient (BNVA) | payer OTHER, SELFPAY | PROVIDERS: Visit Provider Family Medicine | DX: E03.8 Other specified hypothyroidism (principal); R07.89 Other chest pain; Z79.899 Other long term (current) drug therapy | CPT/HCPCS: 80061; 82306; 82607; 84439; 84443 ==